=== PATIENT | male | born 1950 | race Caucasian/White ===

== ENCOUNTER 2017-11-19 09:17 | Inpatient (IN) | payer MEDICARE, OTHER ==
[~2017-11-19] VITALS: Ht 193 cm; Wt 98.0 kg
[~2017-11-19 09:17] MED LIST: ACYC-114 PO; ALBU8.5H5 INH; AMOX1TAB64 PO; DIGO125T PO; ENOX100S5 SQ; FENO134C PO; FLUO1VIA8 TP; GAMMA GLOBULIN; IBRU140C PO; MAGN250T8 PO; MAGN300C PO; MAGN500T PO; METF500T4 PO; MULT-6 PO; OMEP-110 PO; PRAV40TA2 PO; PRED10TA PO; PT WILL BRING LIST; RANI150T4 PO; SOTA160T PO; SOTA80TA18 PO; TIMO5DRO5 LEFTEYE; WARF7.5T46 PO; tobramycin
[2017-11-19 09:48] VITALS: BP 115/76
[2017-11-19] MEDS ORDERED: SODIUM CHLORIDE 0.9% 1,000 ML IV SCH (09:51)
[2017-11-19] MEDS ORDERED: CEFAZOLIN 2 MG in SODIUM CHLORIDE 0.9% 50 ML IV ONE (10:00)
[2017-11-19] MEDS ORDERED: CEFAZOLIN 2,000 MG in SODIUM CHLORIDE 0.9% 50 ML IV ONE (10:27)
[2017-11-19] MEDS ORDERED: LIDOCAINE 2%, 20ML ONE (10:58)
[2017-11-19] MEDS ORDERED: NALOXONE 1 MG/ML, 2ML ONE (10:59)
[2017-11-19] MEDS ORDERED: PROTAMINE SULFATE 10 MG/ML, 25ML ONE (10:59)
[2017-11-19] MEDS ORDERED: FLUMAZENIL 0.1 MG/1 ML, 5ML ONE (10:59)
[2017-11-19] MEDS ORDERED: MIDAZOLAM 1 MG/ML, 5ML ONE (10:59)
[2017-11-19] MEDS ORDERED: FENTANYL PF 100 MCG/2ML ONE (10:59)
[2017-11-19] MEDS ORDERED: HEPARIN 1,000 UNITS/ML, 10ML ONE (10:59)
[2017-11-19] MEDS ORDERED: NITROGLYCERIN 5 MG/ML, 10ML ONE (10:59)
[2017-11-19] MEDS ORDERED: ALTEPLASE 10 MG in SODIUM CHLORIDE 0.9% 90 ML IV SCH (12:00)
[2017-11-19] MEDS ORDERED: HEPARIN 25,000 UNITS/500ML PMX 500 ML IV PRN ×2 (12:00→12:50)
[2017-11-19 12:43] VITALS: BP 124/73
[2017-11-19] MEDS ORDERED: LABETALOL 5MG/ML, 20ML IV PRN (13:00)
[2017-11-19] MEDS ORDERED: hydrALAzine 20 MG/ML, 1ML IV PRN (13:00)
[2017-11-19] MEDS: SODIUM CHLORIDE 0.9% 1,000 ML IV SCH ×3 (13:00→23:00)
[2017-11-19] MEDS: ALTEPLASE 10 MG in SODIUM CHLORIDE 0.9% 90 ML IV SCH ×2 (13:00→18:17)
[2017-11-19] MEDS ORDERED: ONDANSETRON 2MG/ML, 2ML IVPush PRN (13:30)
[2017-11-19] MEDS: HYDROcodone/APAP 5/325 TABLET PO PRN ×3 (14:21→21:07)
[2017-11-19 14:23] LABS: MEAN CORPUSCULAR HEMOGLOBIN 33.7 pg (27.5-34.5); MEAN CORPUSCULAR HGB CONC 34.5 g/dL (33.2-36.2); MEAN CORPUSCULAR VOLUME 97.7 fL (81-97); RED BLOOD COUNT 3.39 x10^6/uL (4.38-5.82); RED CELL DISTRIBUTION WIDTH 16.1 % (9.4-14.8)
[2017-11-19 14:24] LABS: MD YES
[2017-11-19 14:33] LABS: BAND#(MANUAL) 0.06 x10^3/uL; BANDS%(MANUAL) 1 % (0-7); EOS#(MANUAL) 0.12 x10^3/uL (0.0-0.4); EOS% (MANUAL) 2 % (1-7); LYMPH#(MANUAL) 4.84 x10^3/uL (1-3.4); LYMPHS% (MANUAL) 78 % (22-44); REACTIVE LYMPHS # (MANUAL) 0.25 x10^3/uL (0-0); REACTIVE LYMPHS % (MANUAL) 4 % (0-0); SEG#(MANUAL) 0.93 x10^3/uL (1.8-6.8); SEGS% (MANUAL) 15 % (42-75)
[2017-11-19 14:36] LABS: MEAN PLATELET VOLUME 7.4 fL (7.4-10.4); PLATELET COUNT 83 x10^3/uL (130-400)
[2017-11-19 14:42] LABS: ANISOCYTOSIS 1+
[2017-11-19 14:44] LABS: <PLATELET ESTIMATE> DECREASED; LARGE PLATELETS 1+
[2017-11-19 14:47] LABS: INTERNATIONAL NORMALIZED RATIO 1.03 (0.93-1.1); PROTHROMBIN TIME 10.7 Seconds (9.6-11.5)
[2017-11-19 14:48] LABS: OVALOCYTES 1+; POLYCHROMASIA 1+; STOMATOCYTES 1+
[2017-11-19] MEDS: MORPHINE SULFATE 4 MG/ML, 1ML IVPush PRN ×3 (15:24→23:05)
[2017-11-19] MEDS: INSULIN REGULAR, HUMAN 100 UNIT/ML 3ML VIAL LOW DOSE SS SQ-INSULIN SCH ×2 (16:00→20:01)
[2017-11-19 20:24] LABS: MEAN CORPUSCULAR HEMOGLOBIN 33.7 pg (27.5-34.5); MEAN CORPUSCULAR HGB CONC 34.3 g/dL (33.2-36.2); MEAN CORPUSCULAR VOLUME 98.2 fL (81-97); MEAN PLATELET VOLUME 7.3 fL (7.4-10.4); PLATELET COUNT 80 x10^3/uL (130-400); RED BLOOD COUNT 3.36 x10^6/uL (4.38-5.82); RED CELL DISTRIBUTION WIDTH 16.6 % (9.4-14.8)
[2017-11-19 20:38] LABS: MD YES
[2017-11-19 20:48] LABS: ANISOCYTOSIS 1+; BAND#(MANUAL) 0.06 x10^3/uL; BANDS%(MANUAL) 1 % (0-7); LYMPH#(MANUAL) 5.02 x10^3/uL (1-3.4); LYMPHS% (MANUAL) 88 % (22-44); POLYCHROMASIA 1+; SEG#(MANUAL) 0.63 x10^3/uL (1.8-6.8); SEGS% (MANUAL) 11 % (42-75)
[2017-11-19 20:49] LABS: <PLATELET ESTIMATE> DECREASED; <PLT MORPHOLOGY> NORMAL PLT MORPH; OVALOCYTES 1+; STOMATOCYTES 1+; TEAR DROPS 1+
[2017-11-19] MEDS: SOTALOL 80MG TABLET PO SCH (21:07)
[2017-11-19] MEDS: PRAVASTATIN 40 MG TABLET PO SCH (21:07)
[2017-11-19] MEDS: FAMOTIDINE 20 MG TABLET PO SCH (21:07)
[2017-11-19] MEDS: ACYCLOVIR 400 MG TABLET PO SCH (21:08)
[2017-11-19] MEDS: CEFAZOLIN PMX 1GM/50ML 50 ML IV SCH (23:07)
[2017-11-20] MEDS: LORazepam 2 MG/ML, 1ML IVPush PRN ×3 (00:34→12:27)
[2017-11-20] MEDS: HYDROcodone/APAP 5/325 TABLET PO PRN ×3 (00:39→12:27)
[2017-11-20 02:08] LABS: MEAN CORPUSCULAR HEMOGLOBIN 33.9 pg (27.5-34.5); MEAN CORPUSCULAR HGB CONC 34.6 g/dL (33.2-36.2); MEAN CORPUSCULAR VOLUME 98.2 fL (81-97); RED BLOOD COUNT 3.02 x10^6/uL (4.38-5.82); RED CELL DISTRIBUTION WIDTH 16.1 % (9.4-14.8)
[2017-11-20] MEDS: SODIUM CHLORIDE 0.9% 1,000 ML IV SCH ×4 (03:03→20:34)
[2017-11-20] MEDS: MORPHINE SULFATE 4 MG/ML, 1ML IVPush PRN ×3 (03:03→11:13)
[2017-11-20 03:08] LABS: BASOPHILS # (AUTO) 0.02 x10^3/uL (0-0.1); BASOPHILS % (AUTO) 0 % (0-1); EOSINOPHILS # (AUTO) 0.01 x10^3/uL (0-0.4); EOSINOPHILS % (AUTO) 0 % (1-7); LYMPHOCYTES % (AUTO) 83 % (22-44); MD SCAN; MEAN PLATELET VOLUME 8.3 fL (7.4-10.4); MONOCYTES # (AUTO) 0.02 x10^3/uL (0.2-0.8); MONOCYTES % (AUTO) 0 % (2-9); NEUTROPHILS # (AUTO) 0.72 x10^3/uL (1.8-6.8); NEUTROPHILS % (AUTO) 16 % (42-75); PLATELET COUNT 62 x10^3/uL (130-400)
[2017-11-20 04:00] VITALS: BP 107/53
[2017-11-20 04:34] LABS: ANION GAP 9 mmol/L (5-15); CALCIUM 8.5 mg/dL (8.5-10.1); CHLORIDE 109 mmol/L (98-107); CREATININE 1.06 mg/dL (0.7-1.3); MEAN CORPUSCULAR HEMOGLOBIN 33.8 pg (27.5-34.5); MEAN CORPUSCULAR HGB CONC 34.4 g/dL (33.2-36.2); MEAN CORPUSCULAR VOLUME 98.4 fL (81-97); RED BLOOD COUNT 3.05 x10^6/uL (4.38-5.82); RED CELL DISTRIBUTION WIDTH 16.2 % (9.4-14.8)
[2017-11-20 05:08] LABS: BASOPHILS # (AUTO) 0.01 x10^3/uL (0-0.1); BASOPHILS % (AUTO) 0 % (0-1); EOSINOPHILS # (AUTO) 0.02 x10^3/uL (0-0.4); EOSINOPHILS % (AUTO) 0 % (1-7); LYMPHOCYTES # (AUTO) 3.11 x10^3/uL (1-3.4); LYMPHOCYTES % (AUTO) 80 % (22-44); MD SCAN; MEAN PLATELET VOLUME 7.4 fL (7.4-10.4); MONOCYTES # (AUTO) 0.02 x10^3/uL (0.2-0.8); MONOCYTES % (AUTO) 1 % (2-9); NEUTROPHILS # (AUTO) 0.75 x10^3/uL (1.8-6.8); NEUTROPHILS % (AUTO) 19 % (42-75); PLATELET COUNT 72 x10^3/uL (130-400)
[2017-11-20] MEDS: INSULIN REGULAR, HUMAN 100 UNIT/ML 3ML VIAL LOW DOSE SS SQ-INSULIN SCH ×4 (07:00→20:34)
[2017-11-20 07:49] LABS: MEAN CORPUSCULAR HEMOGLOBIN 33.5 pg (27.5-34.5); MEAN CORPUSCULAR HGB CONC 33.9 g/dL (33.2-36.2); MEAN CORPUSCULAR VOLUME 98.7 fL (81-97); MEAN PLATELET VOLUME 7.4 fL (7.4-10.4); PLATELET COUNT 69 x10^3/uL (130-400); RED CELL DISTRIBUTION WIDTH 16.4 % (9.4-14.8)
[2017-11-20] MEDS: FAMOTIDINE 20 MG TABLET PO SCH ×2 (07:59→20:33)
[2017-11-20] MEDS: FENOFIBRATE 145 MG TABLET PO SCH (07:59)
[2017-11-20] MEDS: ACYCLOVIR 400 MG TABLET PO SCH ×2 (07:59→20:34)
[2017-11-20 08:59] LABS: MD YES
[2017-11-20 09:00] LABS: BAND#(MANUAL) 0.04 x10^3/uL; BANDS%(MANUAL) 1 % (0-7); LYMPHS% (MANUAL) 80 % (22-44); MONOS#(MANUAL) 0.04 x10^3/uL (0.3-2.7); MONOS% (MANUAL) 1 % (2-9); SEG#(MANUAL) 0.63 x10^3/uL (1.8-6.8); SEGS% (MANUAL) 18 % (42-75)
[2017-11-20] MEDS: ALTEPLASE 10 MG in SODIUM CHLORIDE 0.9% 90 ML IV SCH (09:00)
[2017-11-20 09:01] LABS: ANISOCYTOSIS 1+; POLYCHROMASIA 1+
[2017-11-20 09:02] LABS: <PLATELET ESTIMATE> DECREASED; <PLT MORPHOLOGY> NORMAL PLT MORPH; OVALOCYTES 1+
[2017-11-20] MEDS: CEFAZOLIN PMX 1GM/50ML 50 ML IV SCH ×2 (10:07→22:41)
[2017-11-20] MEDS: SOTALOL 80MG TABLET PO SCH ×2 (10:07→20:34)
[2017-11-20] MEDS ORDERED: LIDOCAINE 2%, 20ML ONE (11:11)
[2017-11-20] MEDS ORDERED: NITROGLYCERIN 5 MG/ML, 10ML ONE (11:29)
[2017-11-20] MEDS ORDERED: FLUMAZENIL 0.1 MG/1 ML, 5ML ONE (11:29)
[2017-11-20] MEDS ORDERED: MIDAZOLAM 1 MG/ML, 5ML ONE (11:29)
[2017-11-20] MEDS ORDERED: FENTANYL PF 100 MCG/2ML ONE ×2 (11:29)
[2017-11-20] MEDS ORDERED: HEPARIN 1,000 UNITS/ML, 10ML ONE (11:30)
[2017-11-20] MEDS ORDERED: NALOXONE 1 MG/ML, 2ML ONE (11:30)
[2017-11-20] MEDS ORDERED: PROTAMINE SULFATE 10 MG/ML, 25ML ONE (11:30)
[2017-11-20] MEDS ORDERED: DO NOT GIVE HEPARIN BOLUS MC SCH (13:00)
[2017-11-20] MEDS ORDERED: HEPARIN 25,000 UNITS/500ML PMX 500 ML IV PRN (13:00)
[2017-11-20 14:40] LABS: MEAN CORPUSCULAR HEMOGLOBIN 33.3 pg (27.5-34.5); MEAN CORPUSCULAR HGB CONC 33.9 g/dL (33.2-36.2); MEAN CORPUSCULAR VOLUME 98.1 fL (81-97); RED BLOOD COUNT 2.89 x10^6/uL (4.38-5.82); RED CELL DISTRIBUTION WIDTH 15.9 % (9.4-14.8)
[2017-11-20 14:41] LABS: MEAN PLATELET VOLUME 7.1 fL (7.4-10.4); PLATELET COUNT 68 x10^3/uL (130-400)
[2017-11-20] MEDS: PRAVASTATIN 40 MG TABLET PO SCH (20:34)
[2017-11-21 04:00] VITALS: BP 106/54
[2017-11-21] MEDS: SODIUM CHLORIDE 0.9% 1,000 ML IV SCH ×4 (05:00→18:00)
[2017-11-21] MEDS: HYDROcodone/APAP 5/325 TABLET PO PRN (06:48)
[2017-11-21] MEDS: INSULIN REGULAR, HUMAN 100 UNIT/ML 3ML VIAL LOW DOSE SS SQ-INSULIN SCH ×4 (07:00→22:10)
[2017-11-21] MEDS ORDERED: DEXAMETHASONE 4 MG/ML, 1ML ONE (08:53)
[2017-11-21] MEDS: FENOFIBRATE 145 MG TABLET PO SCH (09:43)
[2017-11-21] MEDS: SOTALOL 80MG TABLET PO SCH ×2 (09:43→21:00)
[2017-11-21] MEDS: FAMOTIDINE 20 MG TABLET PO SCH ×2 (09:43→21:00)
[2017-11-21] MEDS: ACYCLOVIR 400 MG TABLET PO SCH ×2 (09:43→21:00)
[2017-11-21] MEDS ORDERED: CEFAZOLIN 1,000 MG in SODIUM CHLORIDE 0.9% 50 ML IV SCH (14:00)
[2017-11-21] MEDS ORDERED: BUPIVACAINE/PF 0.5% ONE (15:05)
[2017-11-21] MEDS ORDERED: THROMBIN 20,000 UNIT VIAL TP ONE ×2 (15:05→18:26)
[2017-11-21] MEDS ORDERED: HEPARIN 1,000 UNITS/ML, 10ML ONE ×2 (15:06→17:09)
[2017-11-21] MEDS ORDERED: PROTAMINE SULFATE 10 MG/ML, 5ML ONE (15:06)
[2017-11-21] MEDS ORDERED: BACITRACIN 50,000 UNIT ONE (15:06)
[2017-11-21] MEDS ORDERED: FENTANYL PF 250 MCG/5ML ONE (15:24)
[2017-11-21] MEDS ORDERED: MIDAZOLAM 1 MG/ML, 2ML ONE (15:24)
[2017-11-21] MEDS: LORazepam 2 MG/ML, 1ML IVPush PRN (15:36)
[2017-11-21] MEDS ORDERED: ONDANSETRON ODT 8 MG PO ONE (16:00)
[2017-11-21] MEDS ORDERED: GABAPENTIN 300 MG CAPSULE PO ONE (16:00)
[2017-11-21] MEDS ORDERED: OxyconTIN ER 10 MG TAB.ER PO ONE (16:00)
[2017-11-21] MEDS ORDERED: ACETAMINOPHEN 500 MG TABLET PO ONE (16:00)
[2017-11-21] MEDS ORDERED: CEFAZOLIN 1,000 MG ONE ×2 (16:25→16:37)
[2017-11-21] MEDS ORDERED: ROCURONIUM 10MG/ML,5ML ONE (16:37)
[2017-11-21] MEDS ORDERED: PROPOFOL 10 MG/ML, 20ML ONE (16:37)
[2017-11-21] MEDS ORDERED: LABETALOL 5MG/ML, 20ML IV PRN (17:00)
[2017-11-21] MEDS ORDERED: MEPERIDINE/PF 25MG/0.5ML IVPush PRN (17:00)
[2017-11-21] MEDS ORDERED: HYDROmorphone 1 MG/ML, 1ML IV PRN (17:00)
[2017-11-21] MEDS ORDERED: hydrALAzine 20 MG/ML, 1ML IV PRN (17:00)
[2017-11-21] MEDS ORDERED: ALBUTEROL/IPRATROPIUM 2.5MG/0.5MG, 3 ML NPPB PRN (17:00)
[2017-11-21] MEDS ORDERED: OXYcodone 5 MG/5 ML ORAL.SOL UDC PO PRN (17:00)
[2017-11-21] MEDS ORDERED: MORPHINE SULFATE 4 MG/ML, 1ML IVPush PRN (17:00)
[2017-11-21] MEDS ORDERED: ONDANSETRON ODT 8 MG PO PRN (17:00)
[2017-11-21] MEDS ORDERED: PROMETHAZINE 12.5 MG SUPP PR PRN (17:00)
[2017-11-21] MEDS: FENTANYL PF 100 MCG/2ML IV PRN (20:02)
[2017-11-21] MEDS ORDERED: FENTANYL PF 100 MCG/2ML ONE (20:02)
[2017-11-21] MEDS ORDERED: OXYcodone 5 MG/5 ML ORAL.SOL UDC ONE (20:02)
[2017-11-21] MEDS: PRAVASTATIN 40 MG TABLET PO SCH (21:00)
[2017-11-21] MEDS ORDERED: ACETAMINOPHEN 325 MG TABLET PO PRN (22:00)
[2017-11-21] MEDS ORDERED: ONDANSETRON 2MG/ML, 2ML IV PRN (22:00)
[2017-11-21] MEDS ORDERED: CEFAZOLIN PMX 2GM/100ML 100 ML IVPB SCH (22:00)
[2017-11-21 22:26] LABS: ANION GAP 8 mmol/L (5-15); CALCIUM 8.1 mg/dL (8.5-10.1); CHLORIDE 109 mmol/L (98-107); CREATININE 1.15 mg/dL (0.7-1.3)
[2017-11-21 22:27] LABS: MEAN CORPUSCULAR HEMOGLOBIN 34.4 pg (27.5-34.5); MEAN CORPUSCULAR HGB CONC 35.1 g/dL (33.2-36.2); MEAN CORPUSCULAR VOLUME 98.1 fL (81-97); RED BLOOD COUNT 2.17 x10^6/uL (4.38-5.82); RED CELL DISTRIBUTION WIDTH 16.7 % (9.4-14.8)
[2017-11-21 23:00] LABS: MEAN PLATELET VOLUME 6.9 fL (7.4-10.4); PLATELET COUNT 79 x10^3/uL (130-400)
[2017-11-21 23:01] LABS: MD YES
[2017-11-21 23:10] LABS: ANISOCYTOSIS 1+; BAND#(MANUAL) 0.05 x10^3/uL; BANDS%(MANUAL) 3 % (0-7); LYMPH#(MANUAL) 0.81 x10^3/uL (1-3.4); LYMPHS% (MANUAL) 54 % (22-44); MONOS#(MANUAL) 0.05 x10^3/uL (0.3-2.7); MONOS% (MANUAL) 3 % (2-9); REACTIVE LYMPHS # (MANUAL) 0.02 x10^3/uL (0-0); REACTIVE LYMPHS % (MANUAL) 1 % (0-0); SEG#(MANUAL) 0.59 x10^3/uL (1.8-6.8); SEGS% (MANUAL) 39 % (42-75)
[2017-11-21 23:11] LABS: OVALOCYTES 1+; POLYCHROMASIA 1+
[2017-11-21 23:12] LABS: <PLATELET ESTIMATE> DECREASED; <PLT MORPHOLOGY> NORMAL PLT MORPH
[2017-11-22] VITALS (9 sets, daily range): BP systolic 95–143; BP diastolic 55–86
[2017-11-22] MEDS: CEFAZOLIN PMX 2GM/50ML 50 ML IVPB SCH ×4 (01:36→20:48)
[2017-11-22] MEDS: FENTANYL PF 100 MCG/2ML IV PRN (02:58)
[2017-11-22] MEDS: SODIUM CHLORIDE 0.9% 1,000 ML IV SCH ×4 (04:00→17:00)
[2017-11-22 05:35] LABS: MEAN CORPUSCULAR HEMOGLOBIN 33.5 pg (27.5-34.5); MEAN CORPUSCULAR VOLUME 98.5 fL (81-97); MEAN PLATELET VOLUME 7.1 fL (7.4-10.4); PLATELET COUNT 77 x10^3/uL (130-400); RED BLOOD COUNT 2.11 x10^6/uL (4.38-5.82); RED CELL DISTRIBUTION WIDTH 16.4 % (9.4-14.8)
[2017-11-22 06:04] LABS: MD YES
[2017-11-22 06:08] LABS: <PLATELET ESTIMATE> DECREASED; <PLT MORPHOLOGY> NORMAL PLT MORPH; ANISOCYTOSIS 1+; LYMPH#(MANUAL) 0.91 x10^3/uL (1-3.4); LYMPHS% (MANUAL) 65 % (22-44); OVALOCYTES 1+; POLYCHROMASIA 1+; SEG#(MANUAL) 0.49 x10^3/uL (1.8-6.8); SEGS% (MANUAL) 35 % (42-75)
[2017-11-22] MEDS: INSULIN REGULAR, HUMAN 100 UNIT/ML 3ML VIAL LOW DOSE SS SQ-INSULIN SCH ×4 (07:00→21:01)
[2017-11-22] MEDS: ASPIRIN 81 MG TABLET EC PO SCH (08:19)
[2017-11-22] MEDS: SOTALOL 80MG TABLET PO SCH ×2 (08:50→20:47)
[2017-11-22] MEDS: HYDROcodone/APAP 5/325 TABLET PO PRN ×3 (08:51→20:10)
[2017-11-22] MEDS: ACYCLOVIR 400 MG TABLET PO SCH ×2 (08:51→20:47)
[2017-11-22] MEDS: FAMOTIDINE 20 MG TABLET PO SCH ×2 (08:51→20:47)
[2017-11-22] MEDS: FENOFIBRATE 145 MG TABLET PO SCH (08:52)
[2017-11-22] MEDS: SODIUM CHLORIDE FLUSH 10ML SYR IVF SCH ×2 (09:00→20:47)
[2017-11-22] MEDS ORDERED: IMMUNE GLOBULIN IV ONE (15:00)
[2017-11-22] MEDS: PRAVASTATIN 40 MG TABLET PO SCH (20:46)
[2017-11-23] MEDS: CEFAZOLIN PMX 2GM/50ML 50 ML IVPB SCH ×4 (00:07→11:24)
[2017-11-23 02:32] VITALS: BP 108/71
[2017-11-23] MEDS: SODIUM CHLORIDE 0.9% 1,000 ML IV SCH ×3 (03:00→11:59)
[2017-11-23] MEDS: HYDROcodone/APAP 5/325 TABLET PO PRN (03:32)
[2017-11-23 05:06] LABS: MEAN CORPUSCULAR HEMOGLOBIN 32.9 pg (27.5-34.5); MEAN CORPUSCULAR HGB CONC 34.5 g/dL (33.2-36.2); MEAN CORPUSCULAR VOLUME 95.2 fL (81-97); MEAN PLATELET VOLUME 7.2 fL (7.4-10.4); PLATELET COUNT 66 x10^3/uL (130-400); RED BLOOD COUNT 2.63 x10^6/uL (4.38-5.82)
[2017-11-23 05:09] LABS: ANION GAP 8 mmol/L (5-15); CALCIUM 8.2 mg/dL (8.5-10.1); CHLORIDE 108 mmol/L (98-107)
[2017-11-23 05:11] LABS: CREATININE 1.06 mg/dL (0.7-1.3)
[2017-11-23 05:40] LABS: MD YES
[2017-11-23 05:44] LABS: <PLATELET ESTIMATE> DECREASED; <PLT MORPHOLOGY> NORMAL PLT MORPH; ANISOCYTOSIS 1+; BAND#(MANUAL) 0.17 x10^3/uL; BANDS%(MANUAL) 9 % (0-7); BASOS#(MANUAL) 0.02 x10^3/uL (0-0.1); BASOS% (MANUAL) 1 % (0-1); EOS#(MANUAL) 0.02 x10^3/uL (0.0-0.4); EOS% (MANUAL) 1 % (1-7); LYMPH#(MANUAL) 1.24 x10^3/uL (1-3.4); LYMPHS% (MANUAL) 65 % (22-44); MONOS#(MANUAL) 0.02 x10^3/uL (0.3-2.7); MONOS% (MANUAL) 1 % (2-9); NRBC % (MANUAL) 1 % (0-1); POLYCHROMASIA 1+; SEG#(MANUAL) 0.44 x10^3/uL (1.8-6.8); SEGS% (MANUAL) 23 % (42-75)
[2017-11-23] MEDS: ASPIRIN 81 MG TABLET EC PO SCH (05:53)
[2017-11-23] MEDS: INSULIN REGULAR, HUMAN 100 UNIT/ML 3ML VIAL LOW DOSE SS SQ-INSULIN SCH ×3 (06:34→16:00)
[2017-11-23 07:04] VITALS: BP 98/62
[2017-11-23] MEDS: FENOFIBRATE 145 MG TABLET PO SCH (09:00)
[2017-11-23] MEDS: ACYCLOVIR 400 MG TABLET PO SCH (09:30)
[2017-11-23] MEDS: SOTALOL 80MG TABLET PO SCH (09:30)
[2017-11-23] MEDS: FAMOTIDINE 20 MG TABLET PO SCH (09:30)
[2017-11-23] MEDS: SODIUM CHLORIDE FLUSH 10ML SYR IVF SCH (09:30)
[2017-11-23 19:48] VITALS: BP 135/74
[2017-11-23] MEDS ORDERED: DOXY100T9 PO (19:58)
== END 2017-11-23 20:28 | disposition home or self-care (01) | DRG 252 ==
LOC: OUT 09:17 → ORIP 12:55 → CCU 12:58 → 4NOR 11-21 20:48
PROVIDERS: ADMIT Surgery; ATTEND Surgery
PROC: B41G1ZZ Fluoroscopy of Left Lower Extremity Arteries using Low Osmolar Contrast (ICD-10-PCS; principal; 2017-11-19)
PROC: B41F1ZZ Fluoroscopy of Right Lower Extremity Arteries using Low Osmolar Contrast (ICD-10-PCS; 2017-11-19)
PROC: 3E05317 Introduction of Other Thrombolytic into Peripheral Artery, Percutaneous Approach (ICD-10-PCS; 2017-11-19)
PROC: 04CM0ZZ Extirpation of Matter from Right Popliteal Artery, Open Approach (ICD-10-PCS; 2017-11-21)
PROC: B4101ZZ Fluoroscopy of Abdominal Aorta using Low Osmolar Contrast (ICD-10-PCS; 2017-11-21)
PROC: 30233N1 Transfusion of Nonautologous Red Blood Cells into Peripheral Vein, Percutaneous Approach (ICD-10-PCS; 2017-11-21)
PROC: 30233R1 Transfusion of Nonautologous Platelets into Peripheral Vein, Percutaneous Approach (ICD-10-PCS; 2017-11-21)
PROC: 04R Lower Arteries, Replacement (ICD-10-PCS; 2017-11-21)
DX: I74.3 Embolism and thrombosis of arteries of the lower extremities (principal); D61.89 Other specified aplastic anemias and other bone marrow failure syndromes; C91.10 Chronic lymphocytic leukemia of B-cell type not having achieved remission; E11.22 Type 2 diabetes mellitus with diabetic chronic kidney disease; I72.4 Aneurysm of artery of lower extremity; E11.51 Type 2 diabetes mellitus with diabetic peripheral angiopathy without gangrene; E78.5 Hyperlipidemia, unspecified; I48.91 Unspecified atrial fibrillation; K21.9 Gastro-esophageal reflux disease without esophagitis; N18.9 Chronic kidney disease, unspecified; Z86.711 Personal history of pulmonary embolism; Z87.891 Personal history of nicotine dependence
CPT/HCPCS: 36415; 37211; 37214; 75710; 80048; 82962; 85025; 85027; 85384; 85520; 85610; 85730; 86850; 86900; 86923; 87081; 93306; 93978; 99156; 99157; J0690; J1100; J1561; J1644; J2250; J2704; J2720; J2997; J3010; J3490; C1751; C1760; C1768; C1769; C1894; J2060; J2310; J7030; P9035; P9040

== ENCOUNTER → 2017-12-05 | Outpatient (CLI) | payer MEDICARE, OTHER ==
[~2017-12-05] MED LIST changes: +DOXY100T9 PO; -METF500T4 PO; +METF500T5 PO
== END ==
LOC: PETCFH 13:35
PROVIDERS: ATTEND Internal Medicine Hematology & Oncology
DX: Z02.9 Encounter for administrative examinations, unspecified (principal)

== ENCOUNTER → 2017-12-27 | Outpatient (CLI) | payer MEDICARE, OTHER | END | disposition home or self-care (01) | LOC: PETCFH 07:35 | PROVIDERS: ATTEND Internal Medicine Hematology & Oncology | DX: C91.10 Chronic lymphocytic leukemia of B-cell type not having achieved remission (principal); C43.9 Malignant melanoma of skin, unspecified; J32.4 Chronic pansinusitis; I25.10 Atherosclerotic heart disease of native coronary artery without angina pectoris; R59.0 Localized enlarged lymph nodes | CPT/HCPCS: 78815; A9552 ==

== ENCOUNTER 2018-01-15 06:45 | Day surgery (SDC) | payer MEDICARE, OTHER ==
[~2018-01-15] VITALS: Ht 193 cm; Wt 87.8 kg
[2018-01-15] MEDS ORDERED: SODIUM CHLORIDE 0.9% 1,000 ML IV SCH (07:10)
[2018-01-15] MEDS ORDERED: CEFAZOLIN PMX 1GM/50ML 50 ML IV ONE (07:30)
[2018-01-15 07:42] VITALS: BP 111/72
[2018-01-15] MEDS ORDERED: LIDOCAINE-MPF 2% ,5ML ONE (08:30)
[2018-01-15] MEDS ORDERED: FENTANYL PF 100 MCG/2ML ONE (08:50)
[2018-01-15] MEDS ORDERED: FLUMAZENIL 0.1 MG/1 ML, 5ML ONE (08:50)
[2018-01-15] MEDS ORDERED: MIDAZOLAM 1 MG/ML, 5ML ONE (08:50)
== END 2018-01-15 11:30 ==
LOC: OUT 06:45
PROVIDERS: ATTEND Nurse Practitioner Family
DX: Z45.2 Encounter for adjustment and management of vascular access device (principal); C95.90 Leukemia, unspecified not having achieved remission; I10 Essential (primary) hypertension; E78.5 Hyperlipidemia, unspecified; D50.9 Iron deficiency anemia, unspecified; J32.9 Chronic sinusitis, unspecified; Z86.711 Personal history of pulmonary embolism; Z98.890 Other specified postprocedural states
CPT/HCPCS: 36561; 76937; 77001; 82962; 99156; 99157; C1788; C1894; J0690; J1642; J2250; J3010; J3490; J7030

== ENCOUNTER 2018-01-18 12:41 | Emergency (ER) | payer MEDICARE, OTHER ==
[2018-01-18] MEDS ORDERED: ALLO100T30 PO (12:58)
[2018-01-18 13:42] LABS: ANION GAP 9 mmol/L (5-15); CALCIUM 8.8 mg/dL (8.5-10.1); CHLORIDE 105 mmol/L (98-107); CREATININE 1.49 mg/dL (0.7-1.3)
[2018-01-18] MEDS ORDERED: ENOX40SY4 SQ (13:45)
[2018-01-18] MEDS ORDERED: OBIN1000 IV (13:48)
[2018-01-18 13:49] LABS: INTERNATIONAL NORMALIZED RATIO 1.18 (0.93-1.1); PROTHROMBIN TIME 12.2 Seconds (9.6-11.5)
[2018-01-18 13:52] LABS: MEAN CORPUSCULAR HEMOGLOBIN 34.9 pg (27.5-34.5); MEAN CORPUSCULAR HGB CONC 34.8 g/dL (33.2-36.2); MEAN CORPUSCULAR VOLUME 100.3 fL (81-97); RED CELL DISTRIBUTION WIDTH 23.3 % (9.4-14.8)
[2018-01-18 13:53] LABS: MEAN PLATELET VOLUME 7.9 fL (7.4-10.4); PLATELET COUNT 70 x10^3/uL (130-400)
[2018-01-18 14:09] LABS: BASOPHILS % (AUTO) 0 % (0-1); EOSINOPHILS # (AUTO) 0.01 x10^3/uL (0-0.4); EOSINOPHILS % (AUTO) 0 % (1-7); LYMPHOCYTES # (AUTO) 1.56 x10^3/uL (1-3.4); LYMPHOCYTES % (AUTO) 73 % (22-44); MONOCYTES # (AUTO) 0.01 x10^3/uL (0.2-0.8); MONOCYTES % (AUTO) 0 % (2-9); NEUTROPHILS # (AUTO) 0.55 x10^3/uL (1.8-6.8); NEUTROPHILS % (AUTO) 26 % (42-75)
[2018-01-18 14:10] LABS: MD SCAN
[2018-01-18] MEDS ORDERED: OMNIPAQUE 350 MG/ML, 100ML BOTTLE ONE (14:44)
[2018-01-18 15:10] VITALS: BP 116/74
== END 2018-01-18 21:37 | disposition home or self-care (01) ==
LOC: ED 16:31
DX: D64.9 Anemia, unspecified (principal); N28.9 Disorder of kidney and ureter, unspecified; R07.89 Other chest pain; I10 Essential (primary) hypertension; E11.9 Type 2 diabetes mellitus without complications; E78.5 Hyperlipidemia, unspecified; K21.9 Gastro-esophageal reflux disease without esophagitis; M10.9 Gout, unspecified; Z86.718 Personal history of other venous thrombosis and embolism; Z86.711 Personal history of pulmonary embolism
CPT/HCPCS: 36415; 71275; 80048; 85025; 85610; 93005; 99285; J1642; Q9967

== ENCOUNTER 2018-03-03 10:29 | Inpatient (IN) | payer MEDICARE, OTHER ==
[~2018-03-03] VITALS: Ht 193 cm; Wt 79.0 kg
[~2018-03-03 10:29] MED LIST changes: +ALLO100T30 PO; +ENOX40SY4 SQ; +METF500T17 PO; -METF500T5 PO; +OBIN1000 IV; +tobramycin NAS
[2018-03-03] MEDS ORDERED: DEXAMETHASONE 4 MG TABLET ONE (11:44)
[2018-03-03 11:59] LABS: ANION GAP 9 mmol/L (5-15); CALCIUM 9.2 mg/dL (8.5-10.1); CHLORIDE 104 mmol/L (98-107); CREATININE 1.61 mg/dL (0.7-1.3)
[2018-03-03] MEDS ORDERED: DEXAMETHASONE 4 MG TABLET PO ONE (12:00)
[2018-03-03 12:22] LABS: MEAN CORPUSCULAR HEMOGLOBIN 31.5 pg (27.5-34.5); MEAN CORPUSCULAR HGB CONC 35.2 g/dL (33.2-36.2); MEAN CORPUSCULAR VOLUME 89.4 fL (81-97); MEAN PLATELET VOLUME 9.2 fL (7.4-10.4); RED BLOOD COUNT 2.75 x10^6/uL (4.38-5.82); RED CELL DISTRIBUTION WIDTH 18.1 % (9.4-14.8)
[2018-03-03 12:23] LABS: PLATELET COUNT 11 x10^3/uL (130-400)
[2018-03-03 12:29] LABS: MD YES
[2018-03-03 12:37] LABS: LYMPH#(MANUAL) 4.36 x10^3/uL (1-3.4); LYMPHS% (MANUAL) 89 % (22-44); NRBC % (MANUAL) 1 % (0-1); SEG#(MANUAL) 0.54 x10^3/uL (1.8-6.8); SEGS% (MANUAL) 11 % (42-75)
[2018-03-03 12:38] LABS: ANISOCYTOSIS 1+
[2018-03-03 12:39] LABS: <PLATELET ESTIMATE> DECREASED; <PLT MORPHOLOGY> QNS
[2018-03-03 14:09] LABS: INTERNATIONAL NORMALIZED RATIO 1.02 (0.93-1.1); PROTHROMBIN TIME 10.6 Seconds (9.6-11.5)
[2018-03-03 14:19] VITALS: BP 129/88
[2018-03-03 14:34] VITALS: BP 124/61
[2018-03-03] MEDS ORDERED: ONDANSETRON 2MG/ML, 2ML IVPush PRN (15:00)
[2018-03-03] MEDS ORDERED: POLYETHYLENE GLYCOL 17 GM PACKET PO PRN (15:00)
[2018-03-03] MEDS ORDERED: LABETALOL 5MG/ML, 20ML IVPush PRN (15:00)
[2018-03-03] MEDS ORDERED: ONDANSETRON ODT 4 MG PO PRN (15:00)
[2018-03-03 15:04] VITALS: BP 129/72
[2018-03-03 15:06] LABS: FREE T4 (FREE THYROXINE) 1.35 ng/dL (0.76-1.46)
[2018-03-03] MEDS ORDERED: VENE100T PO (15:24)
[2018-03-03 16:19] VITALS: BP 109/76
[2018-03-03] MEDS: SODIUM CHLORIDE 0.9% 1,000 ML IV SCH (17:10)
[2018-03-03 17:17] VITALS: BP 109/76
[2018-03-03] MEDS ORDERED: GUAIFENESIN 200 MG TABLET PO PRN (18:00)
[2018-03-03 19:39] VITALS: BP 108/67
[2018-03-03] MEDS: SOTALOL 80MG TABLET PO SCH (20:29)
[2018-03-03] MEDS: ACYCLOVIR 400 MG TABLET PO SCH (20:29)
[2018-03-03] MEDS: PRAVASTATIN 40 MG TABLET PO SCH (20:29)
[2018-03-03] MEDS: FENOFIBRATE 145 MG TABLET PO SCH (20:37)
[2018-03-03] MEDS ORDERED: FENOFIBRATE 145 MG TABLET PO SCH (21:00)
[2018-03-03] MEDS ORDERED: TOBRAMYCIN NAS SCH (21:00)
[2018-03-04] VITALS (7 sets, daily range): BP systolic 99–124; BP diastolic 66–76
[2018-03-04 04:55] LABS: MEAN CORPUSCULAR HEMOGLOBIN 30.9 pg (27.5-34.5); MEAN CORPUSCULAR HGB CONC 34.7 g/dL (33.2-36.2); MEAN CORPUSCULAR VOLUME 89.1 fL (81-97); RED BLOOD COUNT 2.28 x10^6/uL (4.38-5.82); RED CELL DISTRIBUTION WIDTH 17.9 % (9.4-14.8)
[2018-03-04 04:59] LABS: ALANINE AMINOTRANSFERASE 17 U/L (12-78); ANION GAP 6 mmol/L (5-15); CALCIUM 8.6 mg/dL (8.5-10.1); CHLORIDE 106 mmol/L (98-107)
[2018-03-04 05:09] LABS: ALKALINE PHOSPHATASE 72 U/L (45-117); BILIRUBIN,TOTAL 0.7 mg/dL (0.2-1.0); THYROID STIMULATING HORMONE 0.504 mIU/L (0.358-3.740); TOTAL PROTEIN 7.2 g/dL (6.4-8.2)
[2018-03-04] MEDS: SODIUM CHLORIDE 0.9% 1,000 ML IV SCH ×2 (05:20→20:14)
[2018-03-04 05:41] LABS: MEAN PLATELET VOLUME 7.3 fL (7.4-10.4)
[2018-03-04 05:42] LABS: MD YES; PLATELET COUNT 36 x10^3/uL (130-400)
[2018-03-04 05:44] LABS: BAND#(MANUAL) 0.09 x10^3/uL; BANDS%(MANUAL) 1 % (0-7); LYMPH#(MANUAL) 8.27 x10^3/uL (1-3.4); LYMPHS% (MANUAL) 94 % (22-44); SEG#(MANUAL) 0.44 x10^3/uL (1.8-6.8); SEGS% (MANUAL) 5 % (42-75)
[2018-03-04 05:45] LABS: <PLATELET ESTIMATE> DECREASED; <PLT MORPHOLOGY> NORMAL PLT MORPH; ANISOCYTOSIS 1+
[2018-03-04] MEDS: ACYCLOVIR 400 MG TABLET PO SCH ×2 (08:37→20:13)
[2018-03-04] MEDS: ALLOPURINOL 100 MG TABLET PO SCH (08:37)
[2018-03-04] MEDS: SOTALOL 80MG TABLET PO SCH ×2 (08:38→20:13)
[2018-03-04] MEDS: SENNA/DOCUSATE TABLET PO SCH (08:38)
[2018-03-04] MEDS ORDERED: FENOFIBRATE 145 MG TABLET PO SCH (09:00)
[2018-03-04] MEDS: BENZONATATE 100 MG CAPSULE PO SCH ×2 (09:55→20:13)
[2018-03-04] MEDS: metFORMIN 500 MG TABLET PO SCH ×2 (10:35→20:13)
[2018-03-04] MEDS ORDERED: BENZONATATE 100 MG CAPSULE ONE (12:24)
[2018-03-04] MEDS: ACETAMINOPHEN 325 MG TABLET PO PRN (13:08)
[2018-03-04] MEDS: DIPHENHYDRAMINE 25 MG CAPSULE PO PRN (13:08)
[2018-03-04] MEDS: HYDROcodone/CHLORPHENIR ORAL SUSP PO PRN (20:14)
[2018-03-04] MEDS: PRAVASTATIN 40 MG TABLET PO SCH (20:14)
[2018-03-04] MEDS: FENOFIBRATE 145 MG TABLET PO SCH (20:14)
[2018-03-05] VITALS (7 sets, daily range): BP systolic 107–133; BP diastolic 62–72
[2018-03-05] MEDS: ACETAMINOPHEN 500 MG TABLET PO PRN (01:15)
[2018-03-05] MEDS ORDERED: ACETAMINOPHEN 500 MG TABLET PO PRN (01:30)
[2018-03-05 05:40] LABS: MEAN CORPUSCULAR HEMOGLOBIN 31.6 pg (27.5-34.5); MEAN CORPUSCULAR HGB CONC 35.4 g/dL (33.2-36.2); MEAN CORPUSCULAR VOLUME 89.1 fL (81-97); RED BLOOD COUNT 2.61 x10^6/uL (4.38-5.82); RED CELL DISTRIBUTION WIDTH 17.8 % (9.4-14.8)
[2018-03-05 05:50] LABS: CHLORIDE 107 mmol/L (98-107)
[2018-03-05 06:03] LABS: ALANINE AMINOTRANSFERASE 17 U/L (12-78); ALBUMIN 2.8 g/dL (3.4-5.0); ALKALINE PHOSPHATASE 68 U/L (45-117); ANION GAP 8 mmol/L (5-15); BILIRUBIN,TOTAL 0.7 mg/dL (0.2-1.0); CALCIUM 8.3 mg/dL (8.5-10.1); CREATININE 1.37 mg/dL (0.7-1.3); TOTAL PROTEIN 6.8 g/dL (6.4-8.2)
[2018-03-05 06:09] LABS: MD YES
[2018-03-05 06:11] LABS: MEAN PLATELET VOLUME 8.2 fL (7.4-10.4)
[2018-03-05 06:12] LABS: LYMPHS% (MANUAL) 88 % (22-44); PLATELET COUNT 17 x10^3/uL (130-400); SEGS% (MANUAL) 12 % (42-75)
[2018-03-05 06:13] LABS: <PLATELET ESTIMATE> DECREASED; <PLT MORPHOLOGY> NORMAL PLT MORPH; ANISOCYTOSIS 1+
[2018-03-05] MEDS: SENNA/DOCUSATE TABLET PO SCH (08:31)
[2018-03-05] MEDS: ACYCLOVIR 400 MG TABLET PO SCH ×2 (09:07→21:19)
[2018-03-05] MEDS: SOTALOL 80MG TABLET PO SCH ×2 (09:07→21:19)
[2018-03-05] MEDS: metFORMIN 500 MG TABLET PO SCH ×2 (09:07→21:19)
[2018-03-05] MEDS: SODIUM CHLORIDE 0.9% 1,000 ML IV SCH (09:07)
[2018-03-05] MEDS: BENZONATATE 100 MG CAPSULE PO SCH ×3 (09:07→21:19)
[2018-03-05] MEDS: ALLOPURINOL 100 MG TABLET PO SCH (09:07)
[2018-03-05] MEDS: ACETAMINOPHEN 325 MG TABLET PO PRN ×2 (11:54→16:26)
[2018-03-05] MEDS: DIPHENHYDRAMINE 25 MG CAPSULE PO PRN (11:54)
[2018-03-05] MEDS ORDERED: PIPERACILLIN/TAZO/PMX 3.375GM 50 ML IV SCH (14:00)
[2018-03-05] MEDS ORDERED: methylPREDNISolone SOD SUCC 125 MG/2 ML ONE (16:19)
[2018-03-05] MEDS: methylPREDNISolone SOD SUCC 125 MG/2 ML IVPush SCH ×2 (16:26→21:34)
[2018-03-05] MEDS: CEFEPIME 2 GM in DEXTROSE 5% 100 ML IV SCH (16:26)
[2018-03-05] MEDS ORDERED: FAMOTIDINE 20 MG/2 ML IVPush ONE (16:30)
[2018-03-05] MEDS ORDERED: DIPHENHYDRAMINE 50 MG/ML, 1ML IVPush ONE (16:30)
[2018-03-05 17:25] LABS: MICROSCOPIC NOT IND
[2018-03-05] MEDS ORDERED: DOXYCYCLINE 100MG CAP PO SCH (21:00)
[2018-03-05] MEDS: FENOFIBRATE 145 MG TABLET PO SCH (21:19)
[2018-03-05] MEDS: PRAVASTATIN 40 MG TABLET PO SCH (21:19)
[2018-03-06] MEDS: CEFEPIME 2 GM in DEXTROSE 5% 100 ML IV SCH ×3 (01:56→18:23)
[2018-03-06] MEDS: SODIUM CHLORIDE 0.9% 1,000 ML IV SCH (01:56)
[2018-03-06] MEDS: methylPREDNISolone SOD SUCC 125 MG/2 ML IVPush SCH ×4 (04:54→21:31)
[2018-03-06 04:56] VITALS: BP 116/70
[2018-03-06 06:07] LABS: MEAN CORPUSCULAR HGB CONC 34.3 g/dL (33.2-36.2); MEAN CORPUSCULAR VOLUME 90.2 fL (81-97); RED BLOOD COUNT 2.76 x10^6/uL (4.38-5.82); RED CELL DISTRIBUTION WIDTH 17.4 % (9.4-14.8)
[2018-03-06 06:15] LABS: PLATELET COUNT 43 x10^3/uL (130-400)
[2018-03-06 06:22] LABS: BASOPHILS # (AUTO) 0.01 x10^3/uL (0-0.1); BASOPHILS % (AUTO) 0 % (0-1); EOSINOPHILS % (AUTO) 0 % (1-7); LYMPHOCYTES % (AUTO) 87 % (22-44); MD SCAN; MONOCYTES # (AUTO) 0.05 x10^3/uL (0.2-0.8); MONOCYTES % (AUTO) 1 % (2-9); NEUTROPHILS # (AUTO) 0.84 x10^3/uL (1.8-6.8); NEUTROPHILS % (AUTO) 12 % (42-75)
[2018-03-06 07:19] LABS: ANION GAP 9 mmol/L (5-15); CALCIUM 8.6 mg/dL (8.5-10.1); CHLORIDE 106 mmol/L (98-107); CREATININE 1.32 mg/dL (0.7-1.3)
[2018-03-06 07:20] LABS: ALANINE AMINOTRANSFERASE 21 U/L (12-78); ALBUMIN 3.1 g/dL (3.4-5.0)
[2018-03-06 07:22] LABS: ALKALINE PHOSPHATASE 86 U/L (45-117); BILIRUBIN,TOTAL 0.5 mg/dL (0.2-1.0); TOTAL PROTEIN 7.8 g/dL (6.4-8.2)
[2018-03-06] MEDS ORDERED: SODIUM POLYSTYRENE SULFONATE ORAL SUSP PO ONE (08:00)
[2018-03-06] MEDS ORDERED: SODIUM CHLORIDE 0.9% 1,000ML IVBOLUS ONE (08:00)
[2018-03-06] MEDS ORDERED: INSULIN REGULAR 100 UNITS/ML, 3ML VIAL IVPush ONE (08:00)
[2018-03-06] MEDS ORDERED: DEXTROSE 50%, 50ML VIAL IVPush ONE (08:00)
[2018-03-06] MEDS ORDERED: DEXTROSE 50%, 50ML SYRINGE ONE (08:19)
[2018-03-06] MEDS: SOTALOL 80MG TABLET PO SCH ×2 (08:25→21:31)
[2018-03-06] MEDS: ALLOPURINOL 100 MG TABLET PO SCH (08:25)
[2018-03-06] MEDS: SENNA/DOCUSATE TABLET PO SCH (08:25)
[2018-03-06] MEDS: BENZONATATE 100 MG CAPSULE PO SCH ×3 (08:25→21:31)
[2018-03-06] MEDS: SODIUM CHLORIDE 0.45% 1,000 ML IV SCH ×2 (08:26→15:59)
[2018-03-06] MEDS: DOXYCYCLINE 100MG TABLET PO SCH ×2 (09:00→21:31)
[2018-03-06] MEDS: ACYCLOVIR 400 MG TABLET PO SCH ×2 (09:00→21:31)
[2018-03-06 09:59] VITALS: BP 97/71
[2018-03-06 12:29] LABS: CHLORIDE 106 mmol/L (98-107)
[2018-03-06 12:39] LABS: ALANINE AMINOTRANSFERASE 19 U/L (12-78); ALBUMIN 2.9 g/dL (3.4-5.0); ALKALINE PHOSPHATASE 76 U/L (45-117); ANION GAP 14 mmol/L (5-15); BILIRUBIN,TOTAL 0.5 mg/dL (0.2-1.0); CALCIUM 8.1 mg/dL (8.5-10.1); CREATININE 1.16 mg/dL (0.7-1.3); TOTAL PROTEIN 7.2 g/dL (6.4-8.2)
[2018-03-06 15:38] VITALS: BP 108/63
[2018-03-06] MEDS: PRAVASTATIN 40 MG TABLET PO SCH (21:30)
[2018-03-06] MEDS: FENOFIBRATE 145 MG TABLET PO SCH (21:31)
[2018-03-06 21:34] VITALS: BP 123/76
[2018-03-07 02:15] VITALS: BP 109/69
[2018-03-07] MEDS: CEFEPIME 2 GM in DEXTROSE 5% 100 ML IV SCH ×3 (02:15→18:18)
[2018-03-07] MEDS: methylPREDNISolone SOD SUCC 125 MG/2 ML IVPush SCH ×4 (04:38→21:48)
[2018-03-07] MEDS: SODIUM CHLORIDE 0.45% 1,000 ML IV SCH ×2 (04:39→09:57)
[2018-03-07 05:46] LABS: MEAN CORPUSCULAR HEMOGLOBIN 31.3 pg (27.5-34.5); MEAN CORPUSCULAR HGB CONC 35.5 g/dL (33.2-36.2); MEAN CORPUSCULAR VOLUME 88.1 fL (81-97); RED BLOOD COUNT 2.35 x10^6/uL (4.38-5.82); RED CELL DISTRIBUTION WIDTH 17.4 % (9.4-14.8)
[2018-03-07 05:54] LABS: ALBUMIN 2.6 g/dL (3.4-5.0); ANION GAP 10 mmol/L (5-15); CALCIUM 7.7 mg/dL (8.5-10.1); CHLORIDE 107 mmol/L (98-107); CREATININE 1.18 mg/dL (0.7-1.3)
[2018-03-07 06:03] LABS: BASOPHILS % (AUTO) 0 % (0-1); EOSINOPHILS % (AUTO) 0 % (1-7); LYMPHOCYTES # (AUTO) 1.74 x10^3/uL (1-3.4); LYMPHOCYTES % (AUTO) 80 % (22-44); MD SCAN; MEAN PLATELET VOLUME 8.9 fL (7.4-10.4); MONOCYTES % (AUTO) 0 % (2-9); NEUTROPHILS # (AUTO) 0.42 x10^3/uL (1.8-6.8); NEUTROPHILS % (AUTO) 19 % (42-75)
[2018-03-07 07:34] LABS: PLATELET COUNT 24 x10^3/uL (130-400)
[2018-03-07] MEDS ORDERED: ACETAMINOPHEN 325 MG TABLET PO ONE (09:00)
[2018-03-07] MEDS ORDERED: FAMOTIDINE 20 MG/2 ML IVPush ONE (09:00)
[2018-03-07] MEDS ORDERED: DIPHENHYDRAMINE 50 MG/ML, 1ML IVPush ONE (09:00)
[2018-03-07 09:54] VITALS: BP 117/77
[2018-03-07] MEDS: ACYCLOVIR 400 MG TABLET PO SCH ×2 (09:56→20:59)
[2018-03-07] MEDS: SOTALOL 80MG TABLET PO SCH ×2 (09:56→20:59)
[2018-03-07] MEDS: DOXYCYCLINE 100MG TABLET PO SCH ×2 (09:56→20:58)
[2018-03-07] MEDS: BENZONATATE 100 MG CAPSULE PO SCH ×3 (09:56→20:58)
[2018-03-07] MEDS: ALLOPURINOL 100 MG TABLET PO SCH (09:56)
[2018-03-07] MEDS: SENNA/DOCUSATE TABLET PO SCH (09:57)
[2018-03-07 11:21] VITALS: BP 117/71
[2018-03-07 11:41] VITALS: BP 116/73
[2018-03-07 13:40] VITALS: BP 115/68
[2018-03-07 19:17] VITALS: BP 129/72
[2018-03-07] MEDS: PRAVASTATIN 40 MG TABLET PO SCH (20:58)
[2018-03-07] MEDS: FENOFIBRATE 145 MG TABLET PO SCH (20:58)
[2018-03-07] MEDS: INSULIN GLARGINE 100 UNITS/ML, PEN SQ-INSULIN SCH (21:47)
[2018-03-08] MEDS: SODIUM CHLORIDE 0.45% 1,000 ML IV SCH ×3 (00:15→20:45)
[2018-03-08] MEDS: CEFEPIME 2 GM in DEXTROSE 5% 100 ML IV SCH ×3 (02:00→17:06)
[2018-03-08 03:09] VITALS: BP 119/65
[2018-03-08] MEDS: methylPREDNISolone SOD SUCC 125 MG/2 ML IVPush SCH ×4 (04:21→22:57)
[2018-03-08 05:41] LABS: ALBUMIN 2.6 g/dL (3.4-5.0); ANION GAP 8 mmol/L (5-15); CALCIUM 8.1 mg/dL (8.5-10.1); CHLORIDE 109 mmol/L (98-107)
[2018-03-08 05:46] LABS: ALANINE AMINOTRANSFERASE 17 U/L (12-78); ALKALINE PHOSPHATASE 64 U/L (45-117); BILIRUBIN,TOTAL 0.7 mg/dL (0.2-1.0); CREATININE 1.06 mg/dL (0.7-1.3); TOTAL PROTEIN 6.3 g/dL (6.4-8.2)
[2018-03-08 05:50] LABS: MEAN CORPUSCULAR HEMOGLOBIN 31.4 pg (27.5-34.5); MEAN CORPUSCULAR HGB CONC 35.5 g/dL (33.2-36.2); MEAN CORPUSCULAR VOLUME 88.4 fL (81-97); RED BLOOD COUNT 2.61 x10^6/uL (4.38-5.82); RED CELL DISTRIBUTION WIDTH 16.5 % (9.4-14.8)
[2018-03-08 06:13] LABS: BASOPHILS % (AUTO) 0 % (0-1); EOSINOPHILS % (AUTO) 0 % (1-7); LYMPHOCYTES # (AUTO) 1.62 x10^3/uL (1-3.4); LYMPHOCYTES % (AUTO) 77 % (22-44); MD SCAN; MONOCYTES % (AUTO) 0 % (2-9); NEUTROPHILS # (AUTO) 0.47 x10^3/uL (1.8-6.8); NEUTROPHILS % (AUTO) 22 % (42-75)
[2018-03-08 06:15] LABS: PLATELET COUNT 19 x10^3/uL (130-400)
[2018-03-08] MEDS ORDERED: LIDOCAINE-MPF 2%, 2ML ONE (07:57)
[2018-03-08] MEDS ORDERED: FENTANYL PF 100 MCG/2ML ONE (08:10)
[2018-03-08] MEDS ORDERED: MIDAZOLAM 1 MG/ML, 5ML ONE (08:11)
[2018-03-08] MEDS ORDERED: FLUMAZENIL 0.1 MG/1 ML, 5ML ONE (08:11)
[2018-03-08] MEDS ORDERED: NALOXONE 1 MG/ML, 2ML ONE (08:11)
[2018-03-08 08:30] VITALS: BP 116/70
[2018-03-08] MEDS: BENZONATATE 100 MG CAPSULE PO SCH ×3 (09:17→21:30)
[2018-03-08] MEDS: ACYCLOVIR 400 MG TABLET PO SCH ×2 (09:17→21:30)
[2018-03-08] MEDS: SOTALOL 80MG TABLET PO SCH ×2 (09:17→21:30)
[2018-03-08] MEDS: SENNA/DOCUSATE TABLET PO SCH (09:17)
[2018-03-08] MEDS: DOXYCYCLINE 100MG TABLET PO SCH ×2 (09:17→21:30)
[2018-03-08] MEDS: ALLOPURINOL 100 MG TABLET PO SCH (09:17)
[2018-03-08 14:30] VITALS: BP 107/64
[2018-03-08 20:52] VITALS: BP 150/82
[2018-03-08] MEDS: FENOFIBRATE 145 MG TABLET PO SCH (21:30)
[2018-03-08] MEDS: INSULIN GLARGINE 100 UNITS/ML, PEN SQ-INSULIN SCH (21:34)
[2018-03-08] MEDS: PRAVASTATIN 40 MG TABLET PO SCH (21:34)
[2018-03-09] MEDS: CEFEPIME 2 GM in DEXTROSE 5% 100 ML IV SCH ×3 (02:04→19:07)
[2018-03-09 02:57] VITALS: BP 144/83
[2018-03-09] MEDS: methylPREDNISolone SOD SUCC 125 MG/2 ML IVPush SCH ×4 (04:52→22:22)
[2018-03-09] MEDS: SODIUM CHLORIDE 0.45% 1,000 ML IV SCH ×3 (04:52→22:22)
[2018-03-09 05:25] LABS: ALBUMIN 2.4 g/dL (3.4-5.0); ANION GAP 7 mmol/L (5-15); CALCIUM 7.8 mg/dL (8.5-10.1); CHLORIDE 108 mmol/L (98-107)
[2018-03-09 05:26] LABS: MEAN CORPUSCULAR HEMOGLOBIN 31.2 pg (27.5-34.5); RED BLOOD COUNT 2.36 x10^6/uL (4.38-5.82); RED CELL DISTRIBUTION WIDTH 16.6 % (9.4-14.8)
[2018-03-09 05:29] LABS: ALANINE AMINOTRANSFERASE 14 U/L (12-78); ALKALINE PHOSPHATASE 49 U/L (45-117); BILIRUBIN,TOTAL 0.9 mg/dL (0.2-1.0); CREATININE 0.96 mg/dL (0.7-1.3); TOTAL PROTEIN 5.6 g/dL (6.4-8.2)
[2018-03-09 06:14] LABS: MEAN PLATELET VOLUME 8.7 fL (7.4-10.4)
[2018-03-09 06:33] LABS: MD YES
[2018-03-09 06:37] LABS: BAND#(MANUAL) 0.03 x10^3/uL; BANDS%(MANUAL) 2 % (0-7); LYMPH#(MANUAL) 0.86 x10^3/uL (1-3.4); LYMPHS% (MANUAL) 66 % (22-44); SEG#(MANUAL) 0.42 x10^3/uL (1.8-6.8); SEGS% (MANUAL) 32 % (42-75)
[2018-03-09 06:38] LABS: <RBC MORPHOLOGY> NORMAL
[2018-03-09 06:39] LABS: <PLATELET ESTIMATE> DECREASED; <PLT MORPHOLOGY> NORMAL PLT MORPH
[2018-03-09 06:40] LABS: PLATELET COUNT 12 x10^3/uL (130-400)
[2018-03-09 08:30] VITALS: BP 112/71
[2018-03-09] MEDS: SOTALOL 80MG TABLET PO SCH ×2 (09:42→21:10)
[2018-03-09] MEDS: ALLOPURINOL 100 MG TABLET PO SCH (09:42)
[2018-03-09] MEDS: DOXYCYCLINE 100MG TABLET PO SCH (09:42)
[2018-03-09] MEDS: ACYCLOVIR 400 MG TABLET PO SCH ×2 (09:42→21:10)
[2018-03-09] MEDS: BENZONATATE 100 MG CAPSULE PO SCH ×3 (09:42→21:10)
[2018-03-09] MEDS: SENNA/DOCUSATE TABLET PO SCH (09:43)
[2018-03-09 14:30] VITALS: BP 127/74
[2018-03-09 20:47] VITALS: BP 138/82
[2018-03-09] MEDS: FENOFIBRATE 145 MG TABLET PO SCH (21:10)
[2018-03-09] MEDS: PRAVASTATIN 40 MG TABLET PO SCH (21:10)
[2018-03-09] MEDS: INSULIN GLARGINE 100 UNITS/ML, PEN SQ-INSULIN SCH (21:15)
[2018-03-10 01:06] VITALS: BP 144/73
[2018-03-10] MEDS: CEFEPIME 2 GM in DEXTROSE 5% 100 ML IV SCH ×3 (02:39→18:09)
[2018-03-10] MEDS: methylPREDNISolone SOD SUCC 125 MG/2 ML IVPush SCH ×2 (04:53→09:45)
[2018-03-10 05:29] LABS: ALANINE AMINOTRANSFERASE 15 U/L (12-78); ALBUMIN 2.5 g/dL (3.4-5.0); ANION GAP 4 mmol/L (5-15); CALCIUM 7.8 mg/dL (8.5-10.1); CHLORIDE 107 mmol/L (98-107)
[2018-03-10 05:32] LABS: ALKALINE PHOSPHATASE 47 U/L (45-117); BILIRUBIN,TOTAL 1.1 mg/dL (0.2-1.0); CREATININE 0.87 mg/dL (0.7-1.3); TOTAL PROTEIN 5.4 g/dL (6.4-8.2)
[2018-03-10 05:55] LABS: MEAN CORPUSCULAR HEMOGLOBIN 31.5 pg (27.5-34.5); MEAN CORPUSCULAR HGB CONC 35.2 g/dL (33.2-36.2); MEAN CORPUSCULAR VOLUME 89.5 fL (81-97); RED BLOOD COUNT 2.37 x10^6/uL (4.38-5.82)
[2018-03-10 06:09] LABS: PLATELET COUNT 11 x10^3/uL (130-400)
[2018-03-10 06:35] LABS: MD YES
[2018-03-10 06:41] LABS: <PLATELET ESTIMATE> DECREASED; <PLT MORPHOLOGY> NORMAL PLT MORPH; <RBC MORPHOLOGY> NORMAL; LYMPH#(MANUAL) 1.04 x10^3/uL (1-3.4); LYMPHS% (MANUAL) 74 % (22-44); METAMYELOCYTES# (MANUAL) 0.03 x10^3/uL (0-0); METAMYELOCYTES% (MANUAL) 2 % (0-1); SEG#(MANUAL) 0.34 x10^3/uL (1.8-6.8); SEGS% (MANUAL) 24 % (42-75)
[2018-03-10 08:23] VITALS: BP 124/77
[2018-03-10] MEDS: SODIUM CHLORIDE 0.45% 1,000 ML IV SCH (08:48)
[2018-03-10] MEDS: BENZONATATE 100 MG CAPSULE PO SCH (09:44)
[2018-03-10] MEDS: ALLOPURINOL 100 MG TABLET PO SCH (09:44)
[2018-03-10] MEDS: SENNA/DOCUSATE TABLET PO SCH (09:45)
[2018-03-10] MEDS: SOTALOL 80MG TABLET PO SCH ×2 (09:45→20:00)
[2018-03-10] MEDS: ACYCLOVIR 400 MG TABLET PO SCH ×2 (09:45→20:00)
[2018-03-10 13:51] VITALS: BP 124/70
[2018-03-10] MEDS ORDERED: BENZONATATE 100 MG CAPSULE PO PRN (16:30)
[2018-03-10] MEDS: FENOFIBRATE 145 MG TABLET PO SCH (20:00)
[2018-03-10] MEDS: PRAVASTATIN 40 MG TABLET PO SCH (20:00)
[2018-03-10] MEDS: INSULIN GLARGINE 100 UNITS/ML, PEN SQ-INSULIN SCH (20:01)
[2018-03-10 20:13] VITALS: BP 134/74
[2018-03-11] MEDS: CEFEPIME 2 GM in DEXTROSE 5% 100 ML IV SCH ×3 (01:41→18:42)
[2018-03-11 02:06] VITALS: BP 118/73
[2018-03-11 05:44] LABS: HCT (SEDRATE) 23.7 % (39.2-51.8)
[2018-03-11 05:56] LABS: ALANINE AMINOTRANSFERASE 15 U/L (12-78); ALBUMIN 2.6 g/dL (3.4-5.0); ANION GAP 5 mmol/L (5-15); C-REACTIVE PROTEIN, QUANT 0.71 mg/dL (0.02-0.49); CALCIUM 8.4 mg/dL (8.5-10.1); CHLORIDE 107 mmol/L (98-107); CREATININE 0.86 mg/dL (0.7-1.3)
[2018-03-11 05:58] LABS: ALKALINE PHOSPHATASE 48 U/L (45-117); BILIRUBIN,TOTAL 1.2 mg/dL (0.2-1.0); TOTAL PROTEIN 5.6 g/dL (6.4-8.2)
[2018-03-11 06:40] LABS: MEAN CORPUSCULAR HEMOGLOBIN 31.4 pg (27.5-34.5); MEAN CORPUSCULAR HGB CONC 35.2 g/dL (33.2-36.2); MEAN CORPUSCULAR VOLUME 89.2 fL (81-97); MEAN PLATELET VOLUME 7.8 fL (7.4-10.4); RED BLOOD COUNT 2.64 x10^6/uL (4.38-5.82); RED CELL DISTRIBUTION WIDTH 16.2 % (9.4-14.8)
[2018-03-11 06:41] LABS: MD YES; PLATELET COUNT 14 x10^3/uL (130-400)
[2018-03-11 06:45] LABS: LYMPH#(MANUAL) 1.22 x10^3/uL (1-3.4); LYMPHS% (MANUAL) 72 % (22-44); MONOS#(MANUAL) 0.02 x10^3/uL (0.3-2.7); MONOS% (MANUAL) 1 % (2-9); NRBC % (MANUAL) 1 % (0-1); SEG#(MANUAL) 0.46 x10^3/uL (1.8-6.8); SEGS% (MANUAL) 27 % (42-75)
[2018-03-11 06:46] LABS: <PLATELET ESTIMATE> DECREASED; <PLT MORPHOLOGY> NORMAL PLT MORPH; <RBC MORPHOLOGY> NORMAL
[2018-03-11 08:32] VITALS: BP 98/65
[2018-03-11] MEDS: ACYCLOVIR 400 MG TABLET PO SCH ×2 (09:13→20:28)
[2018-03-11] MEDS: SENNA/DOCUSATE TABLET PO SCH (09:13)
[2018-03-11] MEDS: SOTALOL 80MG TABLET PO SCH ×2 (09:14→20:28)
[2018-03-11] MEDS: ALLOPURINOL 100 MG TABLET PO SCH (09:15)
[2018-03-11 09:16] VITALS: BP 102/67
[2018-03-11] MEDS: ACETAMINOPHEN 500 MG TABLET PO PRN (09:53)
[2018-03-11 14:34] VITALS: BP 102/67
[2018-03-11 19:03] VITALS: BP 102/67
[2018-03-11] MEDS: INSULIN GLARGINE 100 UNITS/ML, PEN SQ-INSULIN SCH (20:16)
[2018-03-11] MEDS: FENOFIBRATE 145 MG TABLET PO SCH (20:28)
[2018-03-11] MEDS: PRAVASTATIN 40 MG TABLET PO SCH (20:28)
[2018-03-12] MEDS: CEFEPIME 2 GM in DEXTROSE 5% 100 ML IV SCH ×3 (01:53→18:13)
[2018-03-12 02:11] VITALS: BP 93/61
[2018-03-12 09:32] VITALS: BP 99/61
[2018-03-12] MEDS: SENNA/DOCUSATE TABLET PO SCH (10:46)
[2018-03-12] MEDS: ALLOPURINOL 100 MG TABLET PO SCH (10:46)
[2018-03-12] MEDS: ACYCLOVIR 400 MG TABLET PO SCH ×2 (10:46→20:05)
[2018-03-12] MEDS: SOTALOL 80MG TABLET PO SCH ×2 (10:46→20:05)
[2018-03-12 13:03] LABS: ALANINE AMINOTRANSFERASE 16 U/L (12-78); ALBUMIN 2.7 g/dL (3.4-5.0); ANION GAP 4 mmol/L (5-15); CALCIUM 8.3 mg/dL (8.5-10.1); CHLORIDE 103 mmol/L (98-107)
[2018-03-12 13:05] LABS: ALKALINE PHOSPHATASE 57 U/L (45-117); BILIRUBIN,TOTAL 1.5 mg/dL (0.2-1.0)
[2018-03-12 14:05] LABS: MD YES; MEAN CORPUSCULAR HEMOGLOBIN 30.5 pg (27.5-34.5); MEAN CORPUSCULAR HGB CONC 34.2 g/dL (33.2-36.2); MEAN CORPUSCULAR VOLUME 89.1 fL (81-97); MEAN PLATELET VOLUME 10.1 fL (7.4-10.4); RED BLOOD COUNT 2.71 x10^6/uL (4.38-5.82)
[2018-03-12 14:08] LABS: PLATELET COUNT 17 x10^3/uL (130-400)
[2018-03-12 14:23] LABS: BAND#(MANUAL) 0.03 x10^3/uL; BANDS%(MANUAL) 2 % (0-7); LYMPH#(MANUAL) 0.54 x10^3/uL (1-3.4); LYMPHS% (MANUAL) 36 % (22-44); METAMYELOCYTES# (MANUAL) 0.02 x10^3/uL (0-0); METAMYELOCYTES% (MANUAL) 1 % (0-1); MONOS#(MANUAL) 0.02 x10^3/uL (0.3-2.7); MONOS% (MANUAL) 1 % (2-9); SEGS% (MANUAL) 60 % (42-75)
[2018-03-12 14:24] LABS: ANISOCYTOSIS 1+
[2018-03-12 14:25] LABS: <PLATELET ESTIMATE> DECREASED; <PLT MORPHOLOGY> NORMAL PLT MORPH
[2018-03-12 15:55] VITALS: BP 107/72
[2018-03-12 20:00] VITALS: BP 107/66
[2018-03-12] MEDS: FENOFIBRATE 145 MG TABLET PO SCH (20:05)
[2018-03-12] MEDS: GABAPENTIN 300 MG CAPSULE PO SCH (20:05)
[2018-03-12] MEDS: PRAVASTATIN 40 MG TABLET PO SCH (20:05)
[2018-03-12] MEDS: INSULIN GLARGINE 100 UNITS/ML, PEN SQ-INSULIN SCH (20:05)
[2018-03-13 02:10] VITALS: BP 97/62
[2018-03-13] MEDS: CEFEPIME 2 GM in DEXTROSE 5% 100 ML IV SCH ×3 (02:10→17:29)
[2018-03-13 06:10] LABS: MEAN CORPUSCULAR HEMOGLOBIN 31.4 pg (27.5-34.5); MEAN CORPUSCULAR HGB CONC 35.2 g/dL (33.2-36.2); MEAN CORPUSCULAR VOLUME 89.3 fL (81-97); MEAN PLATELET VOLUME 9.4 fL (7.4-10.4); RED BLOOD COUNT 2.25 x10^6/uL (4.38-5.82); RED CELL DISTRIBUTION WIDTH 16.1 % (9.4-14.8)
[2018-03-13 06:16] LABS: CHLORIDE 103 mmol/L (98-107)
[2018-03-13 06:21] LABS: PLATELET COUNT 13 x10^3/uL (130-400)
[2018-03-13 06:23] LABS: ALANINE AMINOTRANSFERASE 15 U/L (12-78); ALBUMIN 2.4 g/dL (3.4-5.0); ALKALINE PHOSPHATASE 49 U/L (45-117); ANION GAP 4 mmol/L (5-15); BILIRUBIN,TOTAL 1.2 mg/dL (0.2-1.0); CALCIUM 7.8 mg/dL (8.5-10.1); CREATININE 0.86 mg/dL (0.7-1.3); TOTAL PROTEIN 5.3 g/dL (6.4-8.2)
[2018-03-13 06:35] LABS: MD YES
[2018-03-13 06:38] LABS: ANISOCYTOSIS 1+; LYMPH#(MANUAL) 0.32 x10^3/uL (1-3.4); LYMPHS% (MANUAL) 40 % (22-44); NRBC % (MANUAL) 4 % (0-1); POLYCHROMASIA 1+; SEG#(MANUAL) 0.48 x10^3/uL (1.8-6.8); SEGS% (MANUAL) 60 % (42-75)
[2018-03-13 06:39] LABS: <PLATELET ESTIMATE> DECREASED; <PLT MORPHOLOGY> NORMAL PLT MORPH; MICROCYTOSIS 1+
[2018-03-13 08:07] VITALS: BP 92/59
[2018-03-13] MEDS: ACYCLOVIR 400 MG TABLET PO SCH ×2 (08:12→21:14)
[2018-03-13] MEDS: SENNA/DOCUSATE TABLET PO SCH (08:12)
[2018-03-13] MEDS: SOTALOL 80MG TABLET PO SCH ×2 (08:12→21:14)
[2018-03-13] MEDS: ALLOPURINOL 100 MG TABLET PO SCH (08:12)
[2018-03-13 13:01] VITALS: BP 100/65
[2018-03-13] MEDS ORDERED: VENETOCLAX 100 MG TAB PO SCH (14:39)
[2018-03-13 21:06] VITALS: BP 111/77
[2018-03-13] MEDS: PRAVASTATIN 40 MG TABLET PO SCH (21:14)
[2018-03-13] MEDS: FENOFIBRATE 145 MG TABLET PO SCH (21:15)
[2018-03-13] MEDS: GABAPENTIN 300 MG CAPSULE PO SCH (21:15)
[2018-03-13] MEDS: INSULIN GLARGINE 100 UNITS/ML, PEN SQ-INSULIN SCH (21:18)
[2018-03-14] MEDS: CEFEPIME 2 GM in DEXTROSE 5% 100 ML IV SCH ×3 (02:13→18:30)
[2018-03-14 02:18] VITALS: BP 95/64
[2018-03-14 06:03] LABS: CHLORIDE 101 mmol/L (98-107)
[2018-03-14 06:04] LABS: MEAN CORPUSCULAR HEMOGLOBIN 31.4 pg (27.5-34.5); MEAN CORPUSCULAR HGB CONC 35.2 g/dL (33.2-36.2); MEAN CORPUSCULAR VOLUME 89.3 fL (81-97); MEAN PLATELET VOLUME 8.5 fL (7.4-10.4); RED BLOOD COUNT 2.24 x10^6/uL (4.38-5.82); RED CELL DISTRIBUTION WIDTH 15.7 % (9.4-14.8)
[2018-03-14 06:10] LABS: ALANINE AMINOTRANSFERASE 16 U/L (12-78); ALBUMIN 2.6 g/dL (3.4-5.0); ALKALINE PHOSPHATASE 55 U/L (45-117); ANION GAP 6 mmol/L (5-15); BILIRUBIN,TOTAL 1.3 mg/dL (0.2-1.0); CALCIUM 8.2 mg/dL (8.5-10.1); CREATININE 0.94 mg/dL (0.7-1.3); PLATELET COUNT 18 x10^3/uL (130-400); TOTAL PROTEIN 5.9 g/dL (6.4-8.2)
[2018-03-14] MEDS ORDERED: SODIUM PHOSPHATE 30 MMOL in SODIUM CHLORIDE 0.9% 500 ML IV ONE (07:30)
[2018-03-14] MEDS ORDERED: SODIUM PHOSPHATE 4 MEQ/ML IV SCH (07:30)
[2018-03-14] MEDS: ALLOPURINOL 100 MG TABLET PO SCH (08:03)
[2018-03-14] MEDS: ACYCLOVIR 400 MG TABLET PO SCH ×2 (08:03→21:09)
[2018-03-14] MEDS: SOTALOL 80MG TABLET PO SCH ×2 (08:03→21:09)
[2018-03-14] MEDS: SENNA/DOCUSATE TABLET PO SCH (08:04)
[2018-03-14 08:24] LABS: BASOPHILS % (AUTO) 0 % (0-1); EOSINOPHILS % (AUTO) 0 % (1-7); LYMPHOCYTES # (AUTO) 0.28 x10^3/uL (1-3.4); LYMPHOCYTES % (AUTO) 35 % (22-44); MD SCAN; MONOCYTES # (AUTO) 0.01 x10^3/uL (0.2-0.8); MONOCYTES % (AUTO) 1 % (2-9); NEUTROPHILS # (AUTO) 0.51 x10^3/uL (1.8-6.8); NEUTROPHILS % (AUTO) 64 % (42-75)
[2018-03-14 09:58] VITALS: BP 93/60
[2018-03-14] MEDS: VENETOCLAX 100 MG TAB HOMEMEDPO SCH (11:58)
[2018-03-14] MEDS ORDERED: VENETOCLAX 100 MG TAB PO SCH ×2 (12:00)
[2018-03-14] MEDS: ACETAMINOPHEN 500 MG TABLET PO PRN ×2 (12:04→21:09)
[2018-03-14 14:39] VITALS: BP 100/63
[2018-03-14 19:48] VITALS: BP 107/72
[2018-03-14] MEDS: GABAPENTIN 300 MG CAPSULE PO SCH (21:08)
[2018-03-14] MEDS: PRAVASTATIN 40 MG TABLET PO SCH (21:09)
[2018-03-14] MEDS: FENOFIBRATE 145 MG TABLET PO SCH (21:09)
[2018-03-14] MEDS: INSULIN GLARGINE 100 UNITS/ML, PEN SQ-INSULIN SCH (21:25)
[2018-03-15] VITALS (10 sets, daily range): BP systolic 93–109; BP diastolic 60–73
[2018-03-15] MEDS: CEFEPIME 2 GM in DEXTROSE 5% 100 ML IV SCH ×3 (02:48→18:16)
[2018-03-15 03:11] LABS: MEAN CORPUSCULAR HEMOGLOBIN 31.8 pg (27.5-34.5); MEAN CORPUSCULAR HGB CONC 35.5 g/dL (33.2-36.2); MEAN CORPUSCULAR VOLUME 89.6 fL (81-97); MEAN PLATELET VOLUME 8.9 fL (7.4-10.4); RED BLOOD COUNT 2.08 x10^6/uL (4.38-5.82); RED CELL DISTRIBUTION WIDTH 15.8 % (9.4-14.8)
[2018-03-15 03:13] LABS: MD YES; PLATELET COUNT 23 x10^3/uL (130-400)
[2018-03-15 03:19] LABS: CHLORIDE 106 mmol/L (98-107)
[2018-03-15 03:20] LABS: ALANINE AMINOTRANSFERASE 16 U/L (12-78); ALBUMIN 2.5 g/dL (3.4-5.0); ANION GAP 4 mmol/L (5-15); CALCIUM 8.2 mg/dL (8.5-10.1); CREATININE 0.89 mg/dL (0.7-1.3)
[2018-03-15 03:22] LABS: ALKALINE PHOSPHATASE 59 U/L (45-117); BILIRUBIN,TOTAL 0.7 mg/dL (0.2-1.0)
[2018-03-15 03:26] LABS: <PLATELET ESTIMATE> DECREASED; <PLT MORPHOLOGY> NORMAL PLT MORPH; ANISOCYTOSIS 1+; BAND#(MANUAL) 0.02 x10^3/uL; BANDS%(MANUAL) 4 % (0-7); LYMPH#(MANUAL) 0.19 x10^3/uL (1-3.4); LYMPHS% (MANUAL) 32 % (22-44); MONOS#(MANUAL) 0.02 x10^3/uL (0.3-2.7); MONOS% (MANUAL) 4 % (2-9); POLYCHROMASIA 1+; SEG#(MANUAL) 0.36 x10^3/uL (1.8-6.8); SEGS% (MANUAL) 60 % (42-75)
[2018-03-15] MEDS ORDERED: ACETAMINOPHEN 325 MG TABLET PO ONE (06:00)
[2018-03-15] MEDS ORDERED: DIPHENHYDRAMINE 25 MG CAPSULE PO ONE (06:30)
[2018-03-15] MEDS: ACYCLOVIR 400 MG TABLET PO SCH ×2 (09:17→21:37)
[2018-03-15] MEDS: SOTALOL 80MG TABLET PO SCH ×2 (09:17→21:38)
[2018-03-15] MEDS: ALLOPURINOL 100 MG TABLET PO SCH (09:18)
[2018-03-15] MEDS: SENNA/DOCUSATE TABLET PO SCH (09:18)
[2018-03-15] MEDS: VENETOCLAX 100 MG TAB HOMEMEDPO SCH (12:39)
[2018-03-15] MEDS ORDERED: FUROSEMIDE 20 MG/2 ML IV ONE (15:00)
[2018-03-15] MEDS: ACETAMINOPHEN 500 MG TABLET PO PRN ×2 (16:24→21:46)
[2018-03-15] MEDS: FENOFIBRATE 145 MG TABLET PO SCH (21:37)
[2018-03-15] MEDS: GABAPENTIN 300 MG CAPSULE PO SCH (21:37)
[2018-03-15] MEDS: PRAVASTATIN 40 MG TABLET PO SCH (21:38)
[2018-03-15] MEDS: INSULIN GLARGINE 100 UNITS/ML, PEN SQ-INSULIN SCH (21:40)
[2018-03-16 02:05] VITALS: BP 93/62
[2018-03-16] MEDS: CEFEPIME 2 GM in DEXTROSE 5% 100 ML IV SCH ×3 (02:25→18:25)
[2018-03-16 02:51] LABS: ALANINE AMINOTRANSFERASE 16 U/L (12-78); ALBUMIN 2.5 g/dL (3.4-5.0); ANION GAP 8 mmol/L (5-15); CALCIUM 8.2 mg/dL (8.5-10.1); CHLORIDE 104 mmol/L (98-107); CREATININE 0.86 mg/dL (0.7-1.3)
[2018-03-16 02:54] LABS: ALKALINE PHOSPHATASE 56 U/L (45-117); BILIRUBIN,TOTAL 1.2 mg/dL (0.2-1.0); TOTAL PROTEIN 5.9 g/dL (6.4-8.2)
[2018-03-16 03:15] LABS: MEAN CORPUSCULAR VOLUME 88.9 fL (81-97); MEAN PLATELET VOLUME 9.8 fL (7.4-10.4); RED BLOOD COUNT 2.45 x10^6/uL (4.38-5.82); RED CELL DISTRIBUTION WIDTH 15.1 % (9.4-14.8)
[2018-03-16 03:51] LABS: PLATELET COUNT 18 x10^3/uL (130-400)
[2018-03-16 03:57] LABS: MD YES
[2018-03-16 04:03] LABS: ANISOCYTOSIS 1+; LYMPH#(MANUAL) 0.08 x10^3/uL (1-3.4); LYMPHS% (MANUAL) 12 % (22-44); MONOS#(MANUAL) 0.01 x10^3/uL (0.3-2.7); MONOS% (MANUAL) 2 % (2-9); MYELOCYTES# (MANUAL) 0.01 x10^3/uL (0-0); MYELOCYTES% (MANUAL) 2 % (0-0); POLYCHROMASIA 1+; SEG#(MANUAL) 0.59 x10^3/uL (1.8-6.8); SEGS% (MANUAL) 84 % (42-75)
[2018-03-16 04:04] LABS: <PLATELET ESTIMATE> DECREASED; <PLT MORPHOLOGY> NORMAL PLT MORPH
[2018-03-16] MEDS: ACETAMINOPHEN 500 MG TABLET PO PRN ×3 (05:07→20:36)
[2018-03-16 08:17] VITALS: BP 101/66
[2018-03-16] MEDS: SENNA/DOCUSATE TABLET PO SCH (09:38)
[2018-03-16] MEDS: SOTALOL 80MG TABLET PO SCH ×2 (09:38→20:35)
[2018-03-16] MEDS: ACYCLOVIR 400 MG TABLET PO SCH ×2 (09:39→20:35)
[2018-03-16] MEDS: ALLOPURINOL 100 MG TABLET PO SCH (09:39)
[2018-03-16] MEDS ORDERED: METHOCARBAMOL 500 MG TABLET PO PRN (10:00)
[2018-03-16] MEDS: VENETOCLAX 100 MG TAB HOMEMEDPO SCH (12:00)
[2018-03-16 15:01] VITALS: BP 109/71
[2018-03-16 20:20] VITALS: BP 105/71
[2018-03-16] MEDS: GABAPENTIN 300 MG CAPSULE PO SCH (20:35)
[2018-03-16] MEDS: FENOFIBRATE 145 MG TABLET PO SCH (20:35)
[2018-03-16] MEDS: PRAVASTATIN 40 MG TABLET PO SCH (20:35)
[2018-03-16] MEDS: INSULIN GLARGINE 100 UNITS/ML, PEN SQ-INSULIN SCH (20:37)
[2018-03-17] MEDS: CEFEPIME 2 GM in DEXTROSE 5% 100 ML IV SCH ×3 (02:17→18:43)
[2018-03-17 02:41] LABS: ALANINE AMINOTRANSFERASE 17 U/L (12-78); ALBUMIN 2.5 g/dL (3.4-5.0); ANION GAP 5 mmol/L (5-15); CALCIUM 8.6 mg/dL (8.5-10.1); CHLORIDE 106 mmol/L (98-107); CREATININE 0.87 mg/dL (0.7-1.3)
[2018-03-17 02:44] LABS: ALKALINE PHOSPHATASE 61 U/L (45-117); MEAN CORPUSCULAR HEMOGLOBIN 31.5 pg (27.5-34.5); MEAN CORPUSCULAR HGB CONC 35.3 g/dL (33.2-36.2); MEAN CORPUSCULAR VOLUME 89.1 fL (81-97); MEAN PLATELET VOLUME 9.2 fL (7.4-10.4); RED BLOOD COUNT 2.64 x10^6/uL (4.38-5.82); RED CELL DISTRIBUTION WIDTH 15.1 % (9.4-14.8); TOTAL PROTEIN 6.3 g/dL (6.4-8.2)
[2018-03-17 02:46] LABS: PLATELET COUNT 27 x10^3/uL (130-400)
[2018-03-17 02:56] LABS: MD YES
[2018-03-17 03:02] LABS: BAND#(MANUAL) 0.01 x10^3/uL; BANDS%(MANUAL) 2 % (0-7); EOS#(MANUAL) 0.01 x10^3/uL (0.0-0.4); EOS% (MANUAL) 2 % (1-7); LYMPH#(MANUAL) 0.18 x10^3/uL (1-3.4); LYMPHS% (MANUAL) 26 % (22-44); MONOS#(MANUAL) 0.03 x10^3/uL (0.3-2.7); MONOS% (MANUAL) 4 % (2-9); NRBC % (MANUAL) 2 % (0-1); SEG#(MANUAL) 0.46 x10^3/uL (1.8-6.8); SEGS% (MANUAL) 66 % (42-75)
[2018-03-17 03:03] LABS: <PLATELET ESTIMATE> DECREASED; <PLT MORPHOLOGY> NORMAL PLT MORPH; ANISOCYTOSIS 1+; POLYCHROMASIA 1+
[2018-03-17 03:10] VITALS: BP 104/69
[2018-03-17 09:43] VITALS: BP 107/66
[2018-03-17] MEDS: ACYCLOVIR 400 MG TABLET PO SCH ×2 (09:47→21:59)
[2018-03-17] MEDS: SENNA/DOCUSATE TABLET PO SCH (09:47)
[2018-03-17] MEDS: ALLOPURINOL 100 MG TABLET PO SCH (09:47)
[2018-03-17] MEDS: ACETAMINOPHEN 500 MG TABLET PO PRN ×2 (09:48→17:08)
[2018-03-17] MEDS: SOTALOL 80MG TABLET PO SCH ×2 (09:48→21:59)
[2018-03-17] MEDS ORDERED: METHOCARBAMOL 750 MG TABLET PO PRN (11:00)
[2018-03-17 12:01] LABS: CHOL/HDL RATIO 2.9; LDL/HDL RATIO 1.2 (0.5-3.0)
[2018-03-17] MEDS: VENETOCLAX 100 MG TAB HOMEMEDPO SCH (12:44)
[2018-03-17 15:55] VITALS: BP 112/74
[2018-03-17 20:07] VITALS: BP 101/59
[2018-03-17] MEDS: GABAPENTIN 300 MG CAPSULE PO SCH (21:59)
[2018-03-17] MEDS: FENOFIBRATE 145 MG TABLET PO SCH (21:59)
[2018-03-18] MEDS: CEFEPIME 2 GM in DEXTROSE 5% 100 ML IV SCH ×3 (03:22→18:02)
[2018-03-18 03:23] VITALS: BP 97/63
[2018-03-18 03:45] LABS: ALANINE AMINOTRANSFERASE 17 U/L (12-78); ALBUMIN 2.4 g/dL (3.4-5.0); ANION GAP 6 mmol/L (5-15); CALCIUM 8.2 mg/dL (8.5-10.1); CHLORIDE 105 mmol/L (98-107); CREATININE 0.79 mg/dL (0.7-1.3)
[2018-03-18 03:48] LABS: ALKALINE PHOSPHATASE 60 U/L (45-117); BILIRUBIN,TOTAL 0.6 mg/dL (0.2-1.0)
[2018-03-18 05:44] LABS: MEAN CORPUSCULAR HEMOGLOBIN 30.4 pg (27.5-34.5); MEAN CORPUSCULAR VOLUME 89.5 fL (81-97); MEAN PLATELET VOLUME 8.6 fL (7.4-10.4); RED BLOOD COUNT 2.41 x10^6/uL (4.38-5.82); RED CELL DISTRIBUTION WIDTH 15.7 % (9.4-14.8)
[2018-03-18 05:50] LABS: PLATELET COUNT 39 x10^3/uL (130-400)
[2018-03-18 05:53] LABS: MD YES
[2018-03-18 05:59] LABS: BAND#(MANUAL) 0.01 x10^3/uL; BANDS%(MANUAL) 2 % (0-7); LYMPH#(MANUAL) 0.07 x10^3/uL (1-3.4); LYMPHS% (MANUAL) 24 % (22-44); MONOS#(MANUAL) 0.01 x10^3/uL (0.3-2.7); MONOS% (MANUAL) 4 % (2-9); SEG#(MANUAL) 0.21 x10^3/uL (1.8-6.8); SEGS% (MANUAL) 70 % (42-75)
[2018-03-18 06:00] LABS: <PLATELET ESTIMATE> DECREASED; <PLT MORPHOLOGY> NORMAL PLT MORPH; ANISOCYTOSIS 1+; POLYCHROMASIA 1+
[2018-03-18 08:41] VITALS: BP 99/67
[2018-03-18] MEDS: ACYCLOVIR 400 MG TABLET PO SCH ×2 (10:44→20:51)
[2018-03-18] MEDS: SENNA/DOCUSATE TABLET PO SCH (10:45)
[2018-03-18] MEDS: SOTALOL 80MG TABLET PO SCH ×2 (10:45→20:51)
[2018-03-18] MEDS: ALLOPURINOL 100 MG TABLET PO SCH (10:45)
[2018-03-18] MEDS: VENETOCLAX 100 MG TAB HOMEMEDPO SCH (12:51)
[2018-03-18 14:19] VITALS: BP 98/60
[2018-03-18 20:20] VITALS: BP 102/69
[2018-03-18] MEDS: GABAPENTIN 300 MG CAPSULE PO SCH (20:51)
[2018-03-18] MEDS: HYDROcodone/CHLORPHENIR ORAL SUSP PO PRN (21:43)
[2018-03-19 02:05] VITALS: BP 111/65
[2018-03-19] MEDS: CEFEPIME 2 GM in DEXTROSE 5% 100 ML IV SCH ×3 (02:21→18:30)
[2018-03-19 02:45] LABS: ALANINE AMINOTRANSFERASE 21 U/L (12-78); ALBUMIN 2.5 g/dL (3.4-5.0); ANION GAP 5 mmol/L (5-15); CALCIUM 8.8 mg/dL (8.5-10.1); CHLORIDE 104 mmol/L (98-107); CREATININE 0.86 mg/dL (0.7-1.3)
[2018-03-19 02:47] LABS: ALKALINE PHOSPHATASE 72 U/L (45-117); BILIRUBIN,TOTAL 0.7 mg/dL (0.2-1.0); TOTAL PROTEIN 6.4 g/dL (6.4-8.2)
[2018-03-19 03:12] LABS: MEAN CORPUSCULAR HEMOGLOBIN 30.5 pg (27.5-34.5); MEAN CORPUSCULAR HGB CONC 34.2 g/dL (33.2-36.2); MEAN CORPUSCULAR VOLUME 89.3 fL (81-97); MEAN PLATELET VOLUME 7.9 fL (7.4-10.4); PLATELET COUNT 51 x10^3/uL (130-400); RED BLOOD COUNT 2.46 x10^6/uL (4.38-5.82); RED CELL DISTRIBUTION WIDTH 14.9 % (9.4-14.8)
[2018-03-19 03:32] LABS: MD YES
[2018-03-19 03:48] LABS: ANISOCYTOSIS 1+; BAND#(MANUAL) 0.01 x10^3/uL; BANDS%(MANUAL) 2 % (0-7); LYMPH#(MANUAL) 0.08 x10^3/uL (1-3.4); LYMPHS% (MANUAL) 16 % (22-44); MONOS#(MANUAL) 0.04 x10^3/uL (0.3-2.7); MONOS% (MANUAL) 8 % (2-9); POLYCHROMASIA 1+; SEG#(MANUAL) 0.37 x10^3/uL (1.8-6.8); SEGS% (MANUAL) 74 % (42-75)
[2018-03-19 03:49] LABS: <PLATELET ESTIMATE> DECREASED; <PLT MORPHOLOGY> NORMAL PLT MORPH
[2018-03-19 07:49] VITALS: BP 97/66
[2018-03-19] MEDS: ACYCLOVIR 400 MG TABLET PO SCH ×2 (09:19→21:42)
[2018-03-19] MEDS: SENNA/DOCUSATE TABLET PO SCH (09:19)
[2018-03-19] MEDS: SOTALOL 80MG TABLET PO SCH ×2 (09:20→21:42)
[2018-03-19] MEDS: ALLOPURINOL 100 MG TABLET PO SCH (09:20)
[2018-03-19] MEDS: VENETOCLAX 100 MG TAB HOMEMEDPO SCH (12:15)
[2018-03-19 14:05] VITALS: BP 97/63
[2018-03-19 21:21] VITALS: BP 111/65
[2018-03-19] MEDS: GABAPENTIN 300 MG CAPSULE PO SCH (21:41)
[2018-03-19] MEDS: HYDROcodone/CHLORPHENIR ORAL SUSP PO PRN (21:42)
[2018-03-20] MEDS: CEFEPIME 2 GM in DEXTROSE 5% 100 ML IV SCH ×3 (03:17→18:08)
[2018-03-20 03:23] VITALS: BP 95/60
[2018-03-20 03:48] LABS: ALANINE AMINOTRANSFERASE 19 U/L (12-78); ALBUMIN 2.5 g/dL (3.4-5.0); ANION GAP 6 mmol/L (5-15); CALCIUM 8.7 mg/dL (8.5-10.1); CHLORIDE 105 mmol/L (98-107); CREATININE 0.82 mg/dL (0.7-1.3)
[2018-03-20 03:49] LABS: MEAN CORPUSCULAR HEMOGLOBIN 30.2 pg (27.5-34.5); MEAN CORPUSCULAR HGB CONC 33.6 g/dL (33.2-36.2); MEAN CORPUSCULAR VOLUME 89.7 fL (81-97); RED BLOOD COUNT 2.35 x10^6/uL (4.38-5.82); RED CELL DISTRIBUTION WIDTH 14.8 % (9.4-14.8)
[2018-03-20 03:50] LABS: ALKALINE PHOSPHATASE 68 U/L (45-117); BILIRUBIN,TOTAL 0.9 mg/dL (0.2-1.0); TOTAL PROTEIN 6.4 g/dL (6.4-8.2)
[2018-03-20 04:26] LABS: MEAN PLATELET VOLUME 7.9 fL (7.4-10.4); PLATELET COUNT 60 x10^3/uL (130-400)
[2018-03-20 04:27] LABS: MD YES
[2018-03-20 04:33] LABS: BAND#(MANUAL) 0.02 x10^3/uL; BANDS%(MANUAL) 4 % (0-7); LYMPH#(MANUAL) 0.17 x10^3/uL (1-3.4); LYMPHS% (MANUAL) 34 % (22-44); SEG#(MANUAL) 0.31 x10^3/uL (1.8-6.8); SEGS% (MANUAL) 62 % (42-75)
[2018-03-20 04:34] LABS: ANISOCYTOSIS 1+; POLYCHROMASIA 1+
[2018-03-20 04:35] LABS: <PLATELET ESTIMATE> DECREASED; <PLT MORPHOLOGY> NORMAL PLT MORPH
[2018-03-20 07:58] VITALS: BP 96/60
[2018-03-20] MEDS: SOTALOL 80MG TABLET PO SCH ×2 (08:36→20:47)
[2018-03-20] MEDS: ACYCLOVIR 400 MG TABLET PO SCH ×2 (08:36→20:47)
[2018-03-20] MEDS: ALLOPURINOL 100 MG TABLET PO SCH (08:36)
[2018-03-20] MEDS: SENNA/DOCUSATE TABLET PO SCH (08:42)
[2018-03-20] MEDS: VENETOCLAX 100 MG TAB HOMEMEDPO SCH (11:47)
[2018-03-20] MEDS: ACETAMINOPHEN 500 MG TABLET PO PRN (11:55)
[2018-03-20 12:58] VITALS: BP 107/68
[2018-03-20 20:45] VITALS: BP 124/80
[2018-03-20] MEDS: GABAPENTIN 300 MG CAPSULE PO SCH (20:47)
[2018-03-20] MEDS: HYDROcodone/CHLORPHENIR ORAL SUSP PO PRN (20:47)
[2018-03-21 01:59] VITALS: BP 94/62
[2018-03-21] MEDS: CEFEPIME 2 GM in DEXTROSE 5% 100 ML IV SCH ×3 (02:01→18:27)
[2018-03-21 05:34] LABS: CHLORIDE 105 mmol/L (98-107)
[2018-03-21 05:44] LABS: ALANINE AMINOTRANSFERASE 20 U/L (12-78); ALBUMIN 2.6 g/dL (3.4-5.0); ALKALINE PHOSPHATASE 76 U/L (45-117); ANION GAP 7 mmol/L (5-15); BILIRUBIN,TOTAL 0.8 mg/dL (0.2-1.0); CALCIUM 8.6 mg/dL (8.5-10.1); CREATININE 0.88 mg/dL (0.7-1.3); TOTAL PROTEIN 6.7 g/dL (6.4-8.2)
[2018-03-21 05:57] LABS: MEAN CORPUSCULAR HGB CONC 34.8 g/dL (33.2-36.2); MEAN CORPUSCULAR VOLUME 89.1 fL (81-97); MEAN PLATELET VOLUME 7.7 fL (7.4-10.4); PLATELET COUNT 67 x10^3/uL (130-400); RED BLOOD COUNT 2.35 x10^6/uL (4.38-5.82); RED CELL DISTRIBUTION WIDTH 15.5 % (9.4-14.8)
[2018-03-21 07:15] VITALS: BP 103/64
[2018-03-21 07:15] LABS: MD YES
[2018-03-21 07:19] LABS: BAND#(MANUAL) 0.03 x10^3/uL; BANDS%(MANUAL) 6 % (0-7); LYMPH#(MANUAL) 0.06 x10^3/uL (1-3.4); LYMPHS% (MANUAL) 12 % (22-44); SEG#(MANUAL) 0.41 x10^3/uL (1.8-6.8); SEGS% (MANUAL) 82 % (42-75)
[2018-03-21 07:20] LABS: <PLATELET ESTIMATE> DECREASED; <PLT MORPHOLOGY> NORMAL PLT MORPH; ANISOCYTOSIS 1+; POLYCHROMASIA 1+; TOXIC GRAN 1+
[2018-03-21] MEDS: SENNA/DOCUSATE TABLET PO SCH (09:01)
[2018-03-21] MEDS: ALLOPURINOL 100 MG TABLET PO SCH (09:01)
[2018-03-21] MEDS: ACYCLOVIR 400 MG TABLET PO SCH ×2 (09:01→20:03)
[2018-03-21] MEDS: SOTALOL 80MG TABLET PO SCH ×2 (09:02→20:03)
[2018-03-21] MEDS: VENETOCLAX 100 MG TAB HOMEMEDPO SCH (12:04)
[2018-03-21 13:52] VITALS: BP 97/60
[2018-03-21 19:54] VITALS: BP 101/68
[2018-03-21] MEDS: GABAPENTIN 300 MG CAPSULE PO SCH (20:03)
[2018-03-21] MEDS: HYDROcodone/CHLORPHENIR ORAL SUSP PO PRN (20:19)
[2018-03-22] MEDS: CEFEPIME 2 GM in DEXTROSE 5% 100 ML IV SCH ×3 (02:04→18:43)
[2018-03-22 02:05] VITALS: BP 94/67
[2018-03-22 05:40] LABS: MEAN CORPUSCULAR HEMOGLOBIN 30.7 pg (27.5-34.5); MEAN CORPUSCULAR HGB CONC 34.3 g/dL (33.2-36.2); MEAN CORPUSCULAR VOLUME 89.5 fL (81-97); RED BLOOD COUNT 2.32 x10^6/uL (4.38-5.82); RED CELL DISTRIBUTION WIDTH 16.1 % (9.4-14.8)
[2018-03-22 05:58] LABS: CHLORIDE 103 mmol/L (98-107)
[2018-03-22 06:05] LABS: ALANINE AMINOTRANSFERASE 19 U/L (12-78); ALBUMIN 2.6 g/dL (3.4-5.0); ALKALINE PHOSPHATASE 71 U/L (45-117); ANION GAP 7 mmol/L (5-15); BILIRUBIN,TOTAL 1.1 mg/dL (0.2-1.0); CALCIUM 8.5 mg/dL (8.5-10.1); CREATININE 0.85 mg/dL (0.7-1.3); TOTAL PROTEIN 6.5 g/dL (6.4-8.2)
[2018-03-22 06:30] LABS: BASOPHILS % (AUTO) 0 % (0-1); EOSINOPHILS % (AUTO) 0 % (1-7); LYMPHOCYTES # (AUTO) 0.12 x10^3/uL (1-3.4); LYMPHOCYTES % (AUTO) 17 % (22-44); MD SCAN; MEAN PLATELET VOLUME 7.8 fL (7.4-10.4); MONOCYTES # (AUTO) 0.01 x10^3/uL (0.2-0.8); MONOCYTES % (AUTO) 1 % (2-9); NEUTROPHILS # (AUTO) 0.61 x10^3/uL (1.8-6.8); NEUTROPHILS % (AUTO) 82 % (42-75); PLATELET COUNT 94 x10^3/uL (130-400)
[2018-03-22 07:23] VITALS: BP 114/78
[2018-03-22] MEDS: ALLOPURINOL 100 MG TABLET PO SCH (08:34)
[2018-03-22] MEDS: ACYCLOVIR 400 MG TABLET PO SCH ×2 (08:34→20:21)
[2018-03-22] MEDS: SOTALOL 80MG TABLET PO SCH ×2 (08:34→20:21)
[2018-03-22] MEDS: SENNA/DOCUSATE TABLET PO SCH (08:35)
[2018-03-22] MEDS: VENETOCLAX 100 MG TAB HOMEMEDPO SCH (11:32)
[2018-03-22 12:36] VITALS: BP 96/61
[2018-03-22 18:40] VITALS: BP 102/64
[2018-03-22] MEDS: GABAPENTIN 300 MG CAPSULE PO SCH (20:21)
[2018-03-23] VITALS (11 sets, daily range): BP systolic 86–112; BP diastolic 55–72
[2018-03-23] MEDS: CEFEPIME 2 GM in DEXTROSE 5% 100 ML IV SCH ×3 (01:49→21:45)
[2018-03-23 06:05] LABS: CHLORIDE 105 mmol/L (98-107); MEAN CORPUSCULAR HEMOGLOBIN 30.8 pg (27.5-34.5); MEAN CORPUSCULAR HGB CONC 34.2 g/dL (33.2-36.2); MEAN PLATELET VOLUME 7.7 fL (7.4-10.4); PLATELET COUNT 99 x10^3/uL (130-400); RED BLOOD COUNT 2.18 x10^6/uL (4.38-5.82); RED CELL DISTRIBUTION WIDTH 15.5 % (9.4-14.8)
[2018-03-23 06:10] LABS: ALANINE AMINOTRANSFERASE 19 U/L (12-78); ALBUMIN 2.6 g/dL (3.4-5.0); ALKALINE PHOSPHATASE 77 U/L (45-117); ANION GAP 9 mmol/L (5-15); CALCIUM 8.9 mg/dL (8.5-10.1); CREATININE 0.86 mg/dL (0.7-1.3); TOTAL PROTEIN 6.5 g/dL (6.4-8.2)
[2018-03-23 06:29] LABS: MD YES
[2018-03-23 06:35] LABS: <PLATELET ESTIMATE> DECREASED; <PLT MORPHOLOGY> NORMAL PLT MORPH; ANISOCYTOSIS 1+; BAND#(MANUAL) 0.02 x10^3/uL; BANDS%(MANUAL) 3 % (0-7); LYMPHS% (MANUAL) 17 % (22-44); MYELOCYTES# (MANUAL) 0.01 x10^3/uL (0-0); MYELOCYTES% (MANUAL) 2 % (0-0); NRBC % (MANUAL) 4 % (0-1); POLYCHROMASIA 1+; SEG#(MANUAL) 0.47 x10^3/uL (1.8-6.8); SEGS% (MANUAL) 78 % (42-75)
[2018-03-23] MEDS: ALLOPURINOL 100 MG TABLET PO SCH (09:48)
[2018-03-23] MEDS: SOTALOL 80MG TABLET PO SCH ×2 (09:49→21:45)
[2018-03-23] MEDS: SENNA/DOCUSATE TABLET PO SCH (09:49)
[2018-03-23] MEDS: ACYCLOVIR 400 MG TABLET PO SCH ×2 (09:50→21:00)
[2018-03-23] MEDS ORDERED: CATHFLO-ALTEPLASE 2 MG/2 ML CATHFLUSH ONE (12:30)
[2018-03-23] MEDS: VENETOCLAX 100 MG TAB HOMEMEDPO SCH (13:14)
[2018-03-23] MEDS: GABAPENTIN 300 MG CAPSULE PO SCH (21:45)
[2018-03-24 02:17] VITALS: BP 98/63
[2018-03-24] MEDS: CEFEPIME 2 GM in DEXTROSE 5% 100 ML IV SCH ×2 (05:06→13:26)
[2018-03-24 05:42] LABS: MEAN CORPUSCULAR HEMOGLOBIN 31.6 pg (27.5-34.5); MEAN CORPUSCULAR HGB CONC 35.6 g/dL (33.2-36.2); MEAN CORPUSCULAR VOLUME 88.7 fL (81-97); RED BLOOD COUNT 2.66 x10^6/uL (4.38-5.82); RED CELL DISTRIBUTION WIDTH 16.6 % (9.4-14.8)
[2018-03-24 05:47] LABS: ALANINE AMINOTRANSFERASE 20 U/L (12-78); ALBUMIN 2.5 g/dL (3.4-5.0); ANION GAP 8 mmol/L (5-15); CALCIUM 8.4 mg/dL (8.5-10.1); CHLORIDE 105 mmol/L (98-107); CREATININE 0.77 mg/dL (0.7-1.3)
[2018-03-24 05:51] LABS: ALKALINE PHOSPHATASE 87 U/L (45-117); BILIRUBIN,TOTAL 0.9 mg/dL (0.2-1.0); TOTAL PROTEIN 6.4 g/dL (6.4-8.2)
[2018-03-24 06:33] LABS: MD YES; MEAN PLATELET VOLUME 7.4 fL (7.4-10.4); PLATELET COUNT 94 x10^3/uL (130-400)
[2018-03-24 06:40] LABS: BAND#(MANUAL) 0.16 x10^3/uL; BANDS%(MANUAL) 20 % (0-7); LYMPH#(MANUAL) 0.06 x10^3/uL (1-3.4); LYMPHS% (MANUAL) 8 % (22-44); METAMYELOCYTES# (MANUAL) 0.02 x10^3/uL (0-0); METAMYELOCYTES% (MANUAL) 2 % (0-1); SEG#(MANUAL) 0.56 x10^3/uL (1.8-6.8); SEGS% (MANUAL) 70 % (42-75)
[2018-03-24 06:41] LABS: <PLATELET ESTIMATE> DECREASED; <PLT MORPHOLOGY> NORMAL PLT MORPH; ANISOCYTOSIS 1+; POLYCHROMASIA 1+
[2018-03-24 06:59] VITALS: BP 98/68
[2018-03-24] MEDS: ACYCLOVIR 400 MG TABLET PO SCH (10:30)
[2018-03-24] MEDS: SENNA/DOCUSATE TABLET PO SCH (10:31)
[2018-03-24] MEDS: ALLOPURINOL 100 MG TABLET PO SCH (10:31)
[2018-03-24] MEDS: SOTALOL 80MG TABLET PO SCH (10:32)
[2018-03-24] MEDS ORDERED: LEVO500T47 PO (11:14)
[2018-03-24] MEDS ORDERED: VENE100T HOMEMEDPO (11:14)
[2018-03-24] MEDS ORDERED: GABA300C10 PO (11:14)
[2018-03-24] MEDS ORDERED: FLUC100T PO (11:14)
[2018-03-24] MEDS ORDERED: ACYC-114 PO (11:41)
[2018-03-24] MEDS ORDERED: CEFT1VIA20 IVPB (11:44)
[2018-03-24] MEDS: VENETOCLAX 100 MG TAB HOMEMEDPO SCH (12:47)
[2018-03-24 13:53] VITALS: BP 106/68
[2018-03-25] MEDS ORDERED: LEVOFLOXACIN 500 MG TABLET PO SCH (07:00)
[2018-03-25] MEDS ORDERED: FLUCONAZOLE 100 MG TABLET PO SCH (09:00)
== END 2018-03-24 14:53 | disposition home or self-care (01) | DRG 840 ==
LOC: ED 11:30 → EDIP 12:45 → 3NW 16:03
PROVIDERS: ADMIT Hospitalist; ATTEND Hospitalist
PROC: 30233N1 Transfusion of Nonautologous Red Blood Cells into Peripheral Vein, Percutaneous Approach (ICD-10-PCS; 2018-03-03)
PROC: 02HV33Z Insertion of Infusion Device into Superior Vena Cava, Percutaneous Approach (ICD-10-PCS; 2018-03-03)
PROC: 30233R1 Transfusion of Nonautologous Platelets into Peripheral Vein, Percutaneous Approach (ICD-10-PCS; 2018-03-04)
PROC: 07DR3ZX Extraction of Iliac Bone Marrow, Percutaneous Approach, Diagnostic (ICD-10-PCS; principal; 2018-03-08)
DX: C91.10 Chronic lymphocytic leukemia of B-cell type not having achieved remission (principal); J15.1 Pneumonia due to Pseudomonas; N17.9 Acute kidney failure, unspecified; D61.818 Other pancytopenia; D68.59 Other primary thrombophilia; D80.1 Nonfamilial hypogammaglobulinemia; J32.9 Chronic sinusitis, unspecified; E78.5 Hyperlipidemia, unspecified; I12.9 Hypertensive chronic kidney disease with stage 1 through stage 4 chronic kidney disease, or unspecified chronic kidney disease; H40.9 Unspecified glaucoma; I48.2 Chronic atrial fibrillation; R04.0 Epistaxis; E87.5 Hyperkalemia; E11.22 Type 2 diabetes mellitus with diabetic chronic kidney disease; R77.1 Abnormality of globulin; Z51.5 Encounter for palliative care; N18.9 Chronic kidney disease, unspecified; Z95.0 Presence of cardiac pacemaker; Z79.01 Long term (current) use of anticoagulants; Z79.4 Long term (current) use of insulin; Z80.42 Family history of malignant neoplasm of prostate; Z86.711 Personal history of pulmonary embolism; Z87.891 Personal history of nicotine dependence; Z92.21 Personal history of antineoplastic chemotherapy
CPT/HCPCS: 36415; 36430; 38222; 71045; 77012; 80048; 80053; 80061; 81003; 82040; 82330; 82962; 83735; 84100; 84439; 84443; 84550; 85025; 85060; 85097; 85610; 85651; 85730; 86078; 86140; 86480; 86738; 86850; 86900; 86923; 87015; 87040; 87070; 87077; 87081; 87107; 87116; 87184; 87186; 87205; 87206; 87633; 87880; 88184; 88185; 88237; 88264; 88280; 88305; 88311; 88313; 88342; 88360; 88374; 93005; 99156; 99157; 99285; G0378; J1815; J2250; J2997; J3010; J3490; G0461; J1200; J1940; J2310; J2930; J7030; J7040; P9037; P9040; Q0163; S0028

== ENCOUNTER 2018-09-26 14:30 | Outpatient (CLI) | payer MEDICARE, OTHER ==
[~2018-09-26 14:30] MED LIST changes: +CEFT1VIA20 IVPB; +FLUC100T PO; +GABA300C10 PO; +LEVO500T47 PO; +VENE100T HOMEMEDPO; +VENE100T PO
[2018-09-26] MEDS ORDERED: OMNIPAQUE 350 MG/ML, 100ML BOTTLE ONE (15:46)
== END 2018-09-26 23:59 | disposition home or self-care (01) ==
LOC: RAD 14:30
PROVIDERS: ATTEND Specialist
DX: R16.2 Hepatomegaly with splenomegaly, not elsewhere classified (principal); R91.1 Solitary pulmonary nodule; I77.811 Abdominal aortic ectasia; R19.09 Other intra-abdominal and pelvic swelling, mass and lump; Z95.0 Presence of cardiac pacemaker
CPT/HCPCS: 71260; 74177; J1642; Q9967

== ENCOUNTER → 2018-10-24 | Outpatient (CLI) | payer MEDICARE, OTHER ==
[~2018-10-24] MED LIST changes: +RIVA20TA PO; +[UNRECOGNIZED DRUG - CODE] PO
== END | disposition home or self-care (01) ==
LOC: CFH 08:06
PROVIDERS: ATTEND Internal Medicine
DX: J98.4 Other disorders of lung (principal); R91.1 Solitary pulmonary nodule
CPT/HCPCS: 71250

== ENCOUNTER 2018-10-25 06:47 | Day surgery (SDC) | payer MEDICARE, OTHER ==
[~2018-10-25] VITALS: Ht 188 cm; Wt 78.6 kg
[~2018-10-25 06:47] MED LIST changes: -RIVA20TA PO; -[UNRECOGNIZED DRUG - CODE] PO
[2018-10-25] MEDS ORDERED: VENE100T PO (07:40)
[2018-10-25] MEDS ORDERED: RIVA20TA PO (07:40)
[2018-10-25] MEDS ORDERED: ACYC-114 PO (07:40)
[2018-10-25] MEDS ORDERED: [UNRECOGNIZED DRUG - CODE] PO (07:40)
[2018-10-25 07:43] VITALS: BP 102/75
[2018-10-25] MEDS ORDERED: LACTATED RINGERS 1,000 ML IV SCH (08:05)
[2018-10-25 08:29] LABS: ALANINE AMINOTRANSFERASE 18 U/L (12-78); ALBUMIN 3.4 g/dL (3.4-5.0); ANION GAP 7 mmol/L (5-15); CALCIUM 9.5 mg/dL (8.5-10.1); CHLORIDE 105 mmol/L (98-107)
[2018-10-25] MEDS ORDERED: MIDAZOLAM 1 MG/ML, 2ML ONE (08:29)
[2018-10-25] MEDS ORDERED: FENTANYL PF 250 MCG/5ML ONE (08:30)
[2018-10-25] MEDS ORDERED: ROCURONIUM 10MG/ML,5ML ONE (08:30)
[2018-10-25] MEDS ORDERED: PROPOFOL 10 MG/ML, 20ML ONE ×2 (08:30→10:16)
[2018-10-25 08:32] LABS: ALKALINE PHOSPHATASE 86 U/L (45-117); BILIRUBIN,TOTAL 0.7 mg/dL (0.2-1.0); CREATININE 0.96 mg/dL (0.7-1.3); TOTAL PROTEIN 7.1 g/dL (6.4-8.2)
[2018-10-25] MEDS ORDERED: NEOSTIGMINE 1 MG/ML, 10ML ONE (10:14)
[2018-10-25] MEDS ORDERED: GLYCOPYRROLATE 0.2MG/1ML, 5ML ONE (10:15)
[2018-10-25] MEDS ORDERED: ONDANSETRON 2MG/ML, 2ML ONE (10:16)
[2018-10-25] MEDS ORDERED: DEXAMETHASONE 4 MG/ML, 1ML ONE (10:17)
[2018-10-25] MEDS ORDERED: HYDROmorphone 2 MG/ML, 1ML IVPush PRN (11:00)
[2018-10-25] MEDS ORDERED: MEPERIDINE/PF 25MG/0.5ML IVPush PRN ×2 (11:00→14:00)
[2018-10-25] MEDS ORDERED: ALBUTEROL/IPRATROPIUM 2.5MG/0.5MG, 3 ML NPPB PRN (11:00)
[2018-10-25] MEDS ORDERED: LABETALOL 5MG/ML, 20ML IV PRN (11:00)
[2018-10-25] MEDS ORDERED: ONDANSETRON 2MG/ML, 2ML IV PRN (11:00)
[2018-10-25] MEDS ORDERED: OXYcodone 5 MG/5 ML ORAL.SOL UDC PO PRN (11:00)
[2018-10-25] MEDS ORDERED: hydrALAzine 20 MG/ML, 1ML IV PRN (11:00)
[2018-10-25] MEDS ORDERED: PROMETHAZINE 25 MG/ML, 1ML IV PRN (11:00)
[2018-10-25] MEDS ORDERED: FENTANYL PF 100 MCG/2ML IV PRN (11:00)
[2018-10-25] MEDS ORDERED: MEPERIDINE/PF 25MG/ML,1ML ONE (13:58)
[2018-10-25] MEDS ORDERED: methylPREDNISolone SOD SUCC 125 MG/2 ML IVPush ONE (14:00)
== END 2018-10-25 16:45 | disposition home or self-care (01) ==
LOC: OUT 06:47
PROVIDERS: ATTEND Internal Medicine
DX: J15.1 Pneumonia due to Pseudomonas (principal); E78.00 Pure hypercholesterolemia, unspecified; I48.2 Chronic atrial fibrillation; Z79.84 Long term (current) use of oral hypoglycemic drugs; Z79.01 Long term (current) use of anticoagulants; Z79.899 Other long term (current) drug therapy; Z87.891 Personal history of nicotine dependence; Z88.8 Allergy status to other drugs, medicaments and biological substances; Z86.711 Personal history of pulmonary embolism; Z86.718 Personal history of other venous thrombosis and embolism; Z95.0 Presence of cardiac pacemaker
CPT/HCPCS: 31623; 31624; 31627; 31628; 31629; 36415; 71045; 80053; 87015; 87070; 87077; 87102; 87116; 87184; 87186; 87205; 87206; 88112; 88172; 88173; 88177; 88305; 93005; J1100; J2175; J2250; J2405; J2704; J2710; J2930; J3010; 76000; 88108